=== PATIENT | female | born 1995 | race Caucasian/White ===

== ENCOUNTER → 2018-10-07 | Outpatient (CLI) | payer BC, OTHER, SELFPAY ==
[2018-10-07 17:50] LABS: Anion Gap 5 (5-15); BUN 10 mg/dL (7-18); BUN/Creat Ratio 11.4 RATIO (10-20); Chloride 107 mmol/L (98-107); Creatinine, Serum 0.87 mg/dL (0.55-1.02); EST Glomerular Filtration Rate 84 mL/min (>60); Est Glom Filt Rate - Afr Amer 102 mL/min (>60); Glucose 78 mg/dL (74-106); Potassium 3.7 mmol/L (3.5-5.1); Sodium Level 140 mmol/L (136-145)
[2018-10-07 18:12] LABS: Absolute Lymphocyte Count 3.49 X10^3/uL (0.83-4.51); Absolute Neutrophil Count 4.9 X10^3/uL (2.0-7.7); Basophil# 0.02 X10^3/uL; Basophil% 0.2 % (0-1); Eosinophil# 0.21 X10^3/uL; Eosinophils% 2.3 % (0-5); Hematocrit 40.3 % (37-47); Hemoglobin 13.5 g/dL (12.0-15.0); Lymphocyte # 3.49 X10^3/ul (4.0); Lymphocyte % 37.8 % (19-41); Mean Corp Hgb Conc 33.5 g/dL (32-36); Mean Corpuscular Hgb 31.2 pg (27.0-32.0); Mean Corpuscular Volume 93.1 fL (81-99); Mean Platelet Vol. 9.8 fl (6.2-12.0); Monocyte% 6.5 % (0-10); NRBC Flagged by Analyzer 0 % (0-5); Platelet Count 312 K/mm3 (150-450); RBC Distribution Width CV 11.9 % (11.6-14.6); RBC Distribution Width SD 40.7 fl (35.1-43.9); Red Blood Count 4.33 M/mm3 (4.2-5.4); White Blood Count 9.2 K/mm3 (4.4-11.0)
== END | disposition home or self-care (01) ==
PROVIDERS: Family Provider Family Medicine; PCP Family Medicine; Referring Provider Nurse Practitioner Adult Health; Visit Provider Nurse Practitioner Adult Health
DX: R53.83 Other fatigue (principal)
CPT/HCPCS: 80048; 85025

== ENCOUNTER 2018-10-08 18:08 | Emergency (ER) | payer OTHER, SELFPAY ==
[2018-10-08 18:10] VITALS: BP 155/102; PULSE 65; RESP 18; TEMP 36.8; O2SAT 99; BMI 30.7
--- NOTE | 2018-10-08 18:23 | CT_ITS ---
STUDY: CT BRAIN WITHOUT CONTRAST REASON FOR EXAM: Female, 23 years old. Vertigo history of migraines RADIATION DOSAGE (If Supplied By Facility): CTDIvol = ( 44.99 ) mGy, DLP = ( 745.49 ) mGycm TECHNIQUE: Transaxial CT imaging of the brain was performed without administration of intravenous contrast material. Individualized dose optimization techniques were used for this CT. COMPARISON: No relevant priors. FINDINGS: Normal soft tissue structures. Normal calvarium. Normal size ventricles and extra-axial spaces for the patient's age. Normal white matter tracts of the cerebral hemispheres. Normal basal ganglia and thalami. Normal brainstem. Normal cerebellum. There is no intracranial hemorrhage. There are no findings of an acute ischemic infarction. Normal visualized paranasal sinuses. CT/Brain/Head without Contrast IMPRESSION: Normal unenhanced CT scan of the brain. Electronically Signed: Mena Pedraza MD at 19:03 EDT Tel , Service support ,
--- NOTE | 2018-10-08 18:24 | ED.VIS.GEN ---
History of Present Illness Chief Complaint: Dizziness Informant: Patient Onset: Yesterday Context: Onset with activity Timing: Intermittent Current Severity: Moderate Maximum Severity: Severe Narrative: Patient presents to the emergency department with episodic dizziness that she describes as the sensation of motion and change in equilibrium. She states that started yesterday. She states she was at work and moves her head, and started to feel the sensation. She states if she lays flat and rests, it will improve. When she moves, the symptoms will come on. She denies headache. She does take migraine medication daily, but there is been no recent changes in her dose. She denies any neck pain and denies any recent manipulation of her neck. She had no vomiting. She denies ataxia or difficulty with rapid alternating movements. She did see her primary care yesterday and was prescribed meclizine, feels like is not improving her symptoms. Prior similar symptoms: No Recent Illness/Hospitalization: No Past Medical History - Allergies and Home Meds Allergies/Adverse Reactions: Allergies No Known Allergies Allergy (Verified 10/08/18 18:09) Primary Care Physician: Papo Farnsworth MD [Primary Care Provider] - Prior records reviewed: Yes Past Medical History: - - migraine Surgical History: no surgical history Smoking Status: Never smoker Review of Systems General: Denies: Chills, Fever, Sweats Eyes: Denies: Visual changes - bilaterally, Diplopia ENT: Denies: Rhinorrhea, Sore throat Cardiovascular: Denies: Chest pain, Palpitations Respiratory: Denies: Dyspnea, Cough, Dyspnea on exertion Gastrointestinal: Denies: Abdominal pain, Nausea, Vomiting, Diarrhea, Melena, Hematochezia Genitourinary: Denies: Dysuria, Hematuria, Frequency Musculoskeletal: Denies: Back pain, Extremity Pain Skin: Denies: Rash, Wounds Neurological: Denies: Headache, Weakness, Parasthesia, Numbness Psych: Denies: Depression Endocrine: Denies: Polyuria Physical Exam Vital Signs/Narrative: Vital Signs Temp Pulse Resp BP Pulse Ox 10/08/18 18:10 98.3 F 65 18 155/102 H 99 Inital Vital Signs reviewed: Yes General: Well nourished, Well developed, No Acute Distress Head: Normocephalic, Atraumatic Eyes: Perrl, EOMI ENT: Moist mucous membranes, No rhinorrhea Neck: Supple, Nontender Cardiovascular: Regular rate, Regular rhythm, No murmurs Respiratory: No distress, CTA bilaterally, Chest nontender Abdomen: Soft, Nontender, Nondistended, Normal bowel sounds Back: Nontender, Normal Inspection Extremities: Nontender, No edema Skin: Normal color, No rash Neurological: Alert, Oriented x3, Cranial nerves II-XII grossly intact, Normal Strength, Normal Sensation Psychological: Normal affect, Normal Mood Diagnostic/Tx/Re-eval - Medical Decision Making Jorge maneuver was done after evaluation. The patient did have some improvement of her symptoms. Given her history of migraine and persistence, I did obtain a head CT to rule out mass. This is unremarkable. The patient was treated with prednisone, Valium, and Zofran. She did have some improvement. At this point, I do suspect that this is a peripheral vertigo. She has extinguishable nystagmus. She has a normal neurologic examination, steady gait, and no neck pain. She had improvement with an Jorge maneuver. I am going to continue her on outpatient medications and counseled her on using the Jorge at home. I also counseled her that if her symptoms are not improving in 48 hours to return and she is comfortable with this plan of care. Patient will be discharged home. Impression 1. Benign positional vertigo ED Disposition - Plan for ED Patient: Instructions: Benign Positional Vertigo Prescriptions: Prednisone [Deltasone] 40 mg PO DAILY #10 tab Prescription Printed Diazepam [Valium] 5 mg PO Q8 PRN #10 tab PRN Reason: Dizziness Prescription Printed Ondansetron [Zofran Odt] 4 mg PO Q8H PRN PRN #10 tab PRN Reason: Nausea Prescription Printed Referrals: Papo Farnsworth MD [Primary Care Provider] -
[2018-10-08] MEDS: diazePAM 5 MG Tablet PO (18:29)
[2018-10-08] MEDS: Ondansetron ODT 4 MG Tablet PO (18:29)
[2018-10-08] MEDS: predniSONE 20 MG Tablet 60 MG PO (18:29)
[2018-10-08 19:16] VITALS: BP 138/87; PULSE 76; RESP 16; O2SAT 97
== END 2018-10-08 19:17 | disposition home or self-care (01) ==
LOC: ED 18:46
PROVIDERS: Emergency Provider Emergency Medicine; Family Provider Family Medicine; PCP Family Medicine
DX: H81.10 Benign paroxysmal vertigo, unspecified ear (principal); G43.909 Migraine, unspecified, not intractable, without status migrainosus; Z79.899 Other long term (current) drug therapy
CPT/HCPCS: 70450; 99283

== ENCOUNTER → 2019-02-10 12:36 | Outpatient (CLI) | payer OTHER, SELFPAY ==
[2019-02-10 14:50] LABS: ALB/GLOB Ratio 1.2 RATIO (0.9-2.4); AST(SGOT) 21 U/L (15-37); Alanine Aminotransfer ALT/SGPT 23 U/L (13-56); Albumin, Serum 4.3 g/dL (3.2-5.0); Alkaline Phosphatase 48 U/L (45-117); Anion Gap 4 (5-15); BUN 9 mg/dL (7-18); BUN/Creat Ratio 10.4 RATIO (10-20); Calcium,Total 9.1 mg/dL (8.5-10.1); Chloride 106 mmol/L (98-107); Creatinine, Serum 0.86 mg/dL (0.55-1.02); EST Glomerular Filtration Rate 85 mL/min (>60); Est Glom Filt Rate - Afr Amer 103 mL/min (>60); Globulin 3.7 g/dL (2.2-4.2); Glucose 83 mg/dL (74-106); Magnesium 2.2 mg/dL (1.6-2.6); Potassium 4.3 mmol/L (3.5-5.1); Sodium Level 138 mmol/L (136-145); Thyroid Stim Hormone (TSH) 1.54 uIU/mL (0.358-3.74)
== END ==
PROVIDERS: Family Provider Family Medicine; PCP Family Medicine; Referring Provider Family Medicine; Visit Provider Family Medicine
DX: I10 Essential (primary) hypertension (principal)
CPT/HCPCS: 36415; 80053; 83735; 84443

== ENCOUNTER 2021-04-06 07:24 | Emergency (ER) | payer OTHER, SELFPAY ==
[2021-04-06 07:25] VITALS: BP 191/114; PULSE 92; RESP 16; TEMP 35.3; O2SAT 97; BMI 31.7
--- NOTE | 2021-04-06 07:36 | CT_ITS ---
STUDY: CT BRAIN WITHOUT CONTRAST REASON FOR EXAM: Female, 25 years old. Headaches. RADIATION DOSAGE (If Supplied By Facility): CTDIvol = ( 44.99 ) mGy, DLP = ( 796.11 ) mGycm TECHNIQUE: Transaxial CT imaging of the brain was performed without administration of intravenous contrast material. Individualized dose optimization techniques were used for this CT. COMPARISON: Comparison is made with prior study dated 10/08/2018. FINDINGS: Normal soft tissue structures. Normal calvarium. Normal size ventricles and extra-axial spaces for the patient''s age. Normal white matter tracts of the cerebral hemispheres. Normal basal ganglia and thalami. Normal brainstem. Normal cerebellum. There is no intracranial hemorrhage. There are no findings of an acute ischemic infarction. Normal visualized paranasal sinuses. CT/Brain/Head without Contrast IMPRESSION: Normal unenhanced CT scan of the brain. Electronically Signed: Ashutosh Robin MD at 9:14 EST ,
--- NOTE | 2021-04-06 07:37 | EX.ED.DYSGE1 ---
HPI History of Present Illness Chief Complaint: Headache Informant: patient Narrative Narrative: 25-year-old female with a history of migraines states that she has had a headache for 5 days. She describes it as frontal and throbbing in nature. Shards of burning sensation in her nose and feels that her eyes are going to pop out of her skull. She takes rizatriptan which did not help her. She also takes magnesium and takes galcanezumab monthly. No fevers or rashes. No nasal drainage. No sore throat or cough. No nausea vomiting. No arm or leg symptoms. No photophobia. Patient is able to text on her phone without difficulty. PFSH PFS Medical History Hx of ovarian cyst Migraines Home Medications rizatriptan 1 tab PO DAILY PRN 01/04/17 [History Last Taken Unknown] galcanezumab-gnlm 100 mg SQ QMONTH 10/08/18 [History Last Taken Unknown] cyclobenzaprine [Flexeril] 10 mg PO TID PRN 04/06/21 [History Last Taken Unknown] magnesium 200 mg PO DAILY 04/06/21 [History Last Taken Unknown] multivitamin 1 tab PO DAILY 04/06/21 [History Last Taken Unknown] Allergy/AdvReac Type Severity Reaction Status Date / Time No Known Allergies Allergy Verified 04/06/21 07:28 Surgical History Hx of tonsillectomy Social History (Updated 04/06/21 @ 07:[address] Clark Silva DO) Smoking Status: Never smoker substance use type: does not use ROS ROS ED Constitutional Constitutional ED: Denies chills, fever(s) or weight loss Eyes Eyes: Denies change in vision or diplopia ENT ENT ED: Denies ear pain, rhinorrhea or sore throat Cardiovascular Cardiovascular: Denies chest pain, orthopnea, palpitations or racing heartbeat Respiratory/Chest Respiratory/Chest: Denies cough, dyspnea or orthopnea Gastrointestinal Gastrointestinal: Denies abdominal pain, diarrhea, nausea or vomiting Genitourinary Genitourinary ED: Denies dysuria, hematuria or urinary frequency Musculoskeletal Musculoskeletal: Denies arthralgias or myalgias Integumentary Denies abscess or rash Neurologic Neurologic: Reports headache(s) and paresthesias; Denies weakness Psychiatric Psychiatric: Denies anxiety, depression, suicidal ideation or suicidal thoughts Endocrine Endocrinology: Denies polydipsia, polyphagia or polyuria Allergic/Immunologic Allergic/Immunologic ED: Denies mouth swelling, tongue swelling or urticaria EXAM Physical Exam Const Vital Signs: 04/06/21 07:25 04/06/21 08:45 Temperature 95.6 F L Temperature Source Temporal Pulse Rate 92 77 Respiratory Rate 16 16 Blood Pressure 191/114 H 132/89 H Blood Pressure Mean 139 103 Pulse Ox 97 99 Oxygen Delivery Method Room Air Room Air Positive well nourished and well developed General Appearance ED: well developed HEENT Reports normocephalic, head/scalp atraumatic, TM's clear and moist mucous membranes HEENT Narrative: No photophobia. No lesions in the nose. Negative for trauma Tympanic Membrane ED: Yes TM's clear Eyes PERRL and EOMs intact bilaterally Neck no lymphadenopathy, supple and no JVD Resp normal respiratory effort and clear to auscultation bilaterally Cardio regular rate, regular rhythm and no murmurs GI normal to inspection, nondistended, normoactive bowel sounds and non-tender Palpation: soft Back/Spine no CVA tenderness and normal ROM Extremity normal to inspection General Extremety ED: Negative for edema General Extremity: Negative for edema Neuro oriented x3, CN's II-XII intact bilaterally and no sensory deficits noted Sensorium / Orientation: alert Motor Exam: strength 5/5 throughout Psych mental status grossly normal Mood & Affect: Negative for depressed or tearful Skin no rashes or lesions noted and no wounds MDM MDM MDM Narrative Medical decision making narrative: CT the brain was obtained and is negative. Patient received IV fluids Benadryl Toradol and Compazine. Repeat examination shows her to be feeling better. Give her dose of Solu-Medrol recommend every 6 hours Motrin for the next day and following up with primary care especially of her migraines are becoming more frequent but hopefully this is just an episode Radiography Diagnostic Testing: Clinical Impression(s) from Imaging Studies Brain CT 04/06/21 07:36 IMPRESSION: Normal unenhanced CT scan of the brain. Electronically Signed: Ashutosh Robin MD at 9:14 EST , Discharge Plan Triage Chief Complaint: Headache ED Provider: Clark Silva Dx/Rx/DC Orders Clinical Impression: Migraine headache Instructions: ED, Migraine (Classical) Prescriptions: No Action rizatriptan 5 MG tablet 1 tab PO DAILY PRN (Reason: Headache) RF: 0 galcanezumab-gnlm 100 MG/ML syringe 100 mg SQ QMONTH RF: 0 multivitamin Tablet 1 tab PO DAILY RF: 0 cyclobenzaprine [Flexeril] 10 mg Tablet 10 mg PO TID PRN (Reason: muscle spasms) RF: 0 magnesium 200 mg Tablet 200 mg PO DAILY RF: 0 Primary Care Provider: Papo Farnsworth Referrals: Papo Farnsworth MD [Primary Care Provider] - As Needed Disposition Disposition: Home, Self Care
[2021-04-06] MEDS: Ketorolac 30 MG/ML Syringe IV (08:16)
[2021-04-06] MEDS: DiphenhydrAMINE 50 MG/ML Syringe IV (08:16)
[2021-04-06] MEDS: proCHLORPERazine 10 MG/2 ML Vial IV (08:16)
[2021-04-06] MEDS: 0.9% Normal Saline 1,000 ML 999 ML IV (08:16)
[2021-04-06 08:45] VITALS: BP 132/89; PULSE 77; RESP 16; O2SAT 99
[2021-04-06 10:17] VITALS: PULSE 80; RESP 16; O2SAT 99
== END 2021-04-06 10:18 | disposition home or self-care (01) ==
LOC: ED 08:09
PROVIDERS: Emergency Provider Emergency Medicine; PCP Family Medicine; Visit Provider Emergency Medicine
DX: G43.909 Migraine, unspecified, not intractable, without status migrainosus (principal); Z79.899 Other long term (current) drug therapy
CPT/HCPCS: 70450; 96361; 96374; 96375; 99284; A4216

== ENCOUNTER 2021-04-07 12:44 | Outpatient (CLI) | payer OTHER, SELFPAY ==
[2021-04-07 15:28] LABS: Hemoglobin 13.7 g/dL (12.0-15.0); Mean Corp Hgb Conc 32.6 g/dL (32-36); Mean Corpuscular Hgb 30.6 pg (27.0-32.0); Platelet Count 401 K/mm3 (150-450); RBC Distribution Width CV 12.2 % (11.6-14.6); RBC Distribution Width SD 42.5 fl (35.1-43.9); Red Blood Count 4.47 M/mm3 (4.2-5.4); White Blood Count 17.5 K/mm3 (4.4-11.0)
[2021-04-07 16:44] LABS: AST(SGOT) 24 U/L (15-37); Alanine Aminotransfer ALT/SGPT 25 U/L (13-56); Albumin, Serum 4.2 g/dL (3.2-5.0); Alkaline Phosphatase 55 U/L (45-117); Anion Gap 4 (5-15); BUN 12 mg/dL (7-18); BUN/Creat Ratio 15.2 RATIO (10-20); Calcium,Total 9.2 mg/dL (8.5-10.1); Chloride 105 mmol/L (98-107); Creatinine, Serum 0.79 mg/dL (0.55-1.02); EST Glomerular Filtration Rate 93 mL/min (>60); Est Glom Filt Rate - Afr Amer 113 mL/min (>60); Globulin 4.2 g/dL (2.2-4.2); Glucose 57 mg/dL (74-106); Potassium 3.1 mmol/L (3.5-5.1); Protein, Total 8.4 g/dL (6.4-8.2); Sodium Level 138 mmol/L (136-145); Thyroid Stim Hormone (TSH) 1.41 uIU/mL (0.358-3.74)
== END 2021-04-07 23:59 | disposition home or self-care (01) ==
PROVIDERS: PCP Family Medicine; Referring Provider Family Medicine; Visit Provider Family Medicine
DX: I10 Essential (primary) hypertension (principal)
CPT/HCPCS: 36415; 80053; 84443; 85027

== ENCOUNTER 2021-04-18 15:53 | Outpatient (CLI) | payer OTHER, SELFPAY ==
[2021-04-18 18:07] LABS: Absolute Lymphocyte Count 4.94 X10^3/uL (0.83-4.51); Basophil# 0.05 X10^3/uL; Basophil% 0.4 % (0-1); Eosinophils% 0.8 % (0-5); Hematocrit 40.3 % (37-47); Lymphocyte # 4.94 X10^3/ul (0.83-4.51); Lymphocyte % 40.6 % (19-41); Mean Corp Hgb Conc 32.3 g/dL (32-36); Mean Corpuscular Hgb 30.4 pg (27.0-32.0); Mean Corpuscular Volume 94.2 fL (81-99); Mean Platelet Vol. 9.7 fl (6.2-12.0); Monocyte# 0.96 X10^3/uL; Monocyte% 7.9 % (0-10); NRBC Flagged by Analyzer 0 % (0-5); Neutrophil # 6.03 X10^3/uL (2.7-7.7); Neutrophil % 49.6 % (47-70); Platelet Count 418 K/mm3 (150-450); RBC Distribution Width CV 11.9 % (11.6-14.6); RBC Distribution Width SD 41.6 fl (35.1-43.9); Red Blood Count 4.28 M/mm3 (4.2-5.4); White Blood Count 12.2 K/mm3 (4.4-11.0)
[2021-04-18 18:52] LABS: Anion Gap 5 (5-15); BUN 10 mg/dL (7-18); Calcium,Total 9.6 mg/dL (8.5-10.1); Chloride 104 mmol/L (98-107); Creatinine, Serum 0.84 mg/dL (0.55-1.02); EST Glomerular Filtration Rate 87 mL/min (>60); Est Glom Filt Rate - Afr Amer 106 mL/min (>60); Glucose 84 mg/dL (74-106); Magnesium 2.6 mg/dL (1.6-2.6); Potassium 4.3 mmol/L (3.5-5.1); Sodium Level 137 mmol/L (136-145)
== END 2021-04-18 23:59 | disposition home or self-care (01) ==
LOC: MFPLAB 15:54
PROVIDERS: PCP Family Medicine; Visit Provider Family Medicine
DX: D72.829 Elevated white blood cell count, unspecified (principal); I10 Essential (primary) hypertension
CPT/HCPCS: 36415; 80048; 83735; 85025

== ENCOUNTER → 2021-11-22 | Outpatient (CLI) | payer OTHER, SELFPAY ==
[2021-11-22 18:43] LABS: Luteinizing Hormone 1.8 mIU/mL; Prolactin 15.7 ng/mL
[2021-11-22 18:46] LABS: hCG Titer Quant., Serum < 1 mIU/mL (1-3)
[2021-11-24 16:58] LABS: Cancer Antigen 125 18.5 U/mL (0.0-38.1); Carcinoembryonic Antigen 2139 0.3 ng/mL (0.0-4.7)
== END | disposition home or self-care (01) ==
LOC: WOBLAB 16:28
PROVIDERS: PCP Family Medicine; Visit Provider Student in an Organized Health Care Education/Training Program
DX: N93.9 Abnormal uterine and vaginal bleeding, unspecified (principal)
CPT/HCPCS: 36415; 82105; 82378; 83001; 83002; 84146; 84702; 86304

== ENCOUNTER → 2021-12-15 | Outpatient (CLI) | payer OTHER, SELFPAY ==
[2021-12-15 15:40] LABS: Hemoglobin 13.7 g/dL (12.0-15.0); Mean Corp Hgb Conc 33.4 g/dL (32-36); Mean Corpuscular Hgb 31.6 pg (27.0-32.0); Mean Corpuscular Volume 94.7 fL (81-99); Mean Platelet Vol. 9.6 fl (6.2-12.0); Platelet Count 392 K/mm3 (150-450); RBC Distribution Width CV 12.1 % (11.6-14.6); RBC Distribution Width SD 42.3 fl (35.1-43.9); Red Blood Count 4.33 M/mm3 (4.2-5.4); White Blood Count 12.4 K/mm3 (4.4-11.0)
[2021-12-15 15:54] LABS: ALB/GLOB Ratio 1.1 RATIO (0.9-2.4); AST(SGOT) 23 U/L (15-37); Alanine Aminotransfer ALT/SGPT 28 U/L (13-56); Albumin, Serum 4.2 g/dL (3.2-5.0); Alkaline Phosphatase 54 U/L (45-117); Anion Gap 3 (5-15); BUN 12 mg/dL (7-18); BUN/Creat Ratio 13.7 RATIO (10-20); Calcium,Total 9.5 mg/dL (8.5-10.1); Chloride 105 mmol/L (98-107); Creatinine, Serum 0.88 mg/dL (0.55-1.02); EST Glomerular Filtration Rate 82 mL/min (>60); Est Glom Filt Rate - Afr Amer 99 mL/min (>60); Globulin 3.9 g/dL (2.2-4.2); Glucose 90 mg/dL (74-106); Potassium 3.5 mmol/L (3.5-5.1); Protein, Total 8.1 g/dL (6.4-8.2); Sodium Level 138 mmol/L (136-145)
== END | disposition home or self-care (01) ==
LOC: MTLAB 13:23
PROVIDERS: PCP Family Medicine; Referring Provider Obstetrics & Gynecology; Visit Provider Obstetrics & Gynecology
DX: Z01.812 Encounter for preprocedural laboratory examination (principal); R97.8 Other abnormal tumor markers; N83.201 Unspecified ovarian cyst, right side
CPT/HCPCS: 36415; 80053; 85027

== ENCOUNTER → 2022-11-02 | Outpatient (CLI) | payer OTHER, SELFPAY ==
[2022-11-02 18:25] LABS: Anion Gap 4 (5-15); BUN 16 mg/dL (7-18); BUN/Creat Ratio 18.2 RATIO (10-20); Calcium,Total 9.3 mg/dL (8.5-10.1); Chloride 105 mmol/L (98-107); Cholesterol 183 mg/dL (200); Creatinine, Serum 0.88 mg/dL (0.55-1.02); EST Glomerular Filtration Rate 81 mL/min (>60); Est Glom Filt Rate - Afr Amer 98 mL/min (>60); Glucose 85 mg/dL (74-106); High Density Lipoprotein 93 mg/dL; Potassium 3.5 mmol/L (3.5-5.1); Sodium Level 136 mmol/L (136-145); Thyroid Stim Hormone (TSH) 2.13 uIU/mL (0.358-3.74); Triglycerides 104 mg/dL; Very Low Density Lipoprotein 21 mg/dL (5-40)
[2022-11-06 12:08] LABS: ANTINUCLEAR ANTIBODIES DIRECT Negative (Negative)
[2022-11-10 12:09] LABS: Aldosterone, Serum 2.6 ng/dL (0.0-30.0); Renin, Plasma 0.426 ng/mL/hr (0.167-5.380)
== END | disposition home or self-care (01) ==
LOC: MTLAB 16:02
PROVIDERS: PCP Family Medicine; Visit Provider Family Medicine
DX: R63.5 Abnormal weight gain (principal); I10 Essential (primary) hypertension
CPT/HCPCS: 36415; 80048; 80061; 82088; 82533; 84244; 84443; 86038

== ENCOUNTER 2023-04-12 12:59 | Emergency (ER) | payer OTHER, SELFPAY ==
[2023-04-12 13:00] VITALS: BP 130/78; PULSE 74; RESP 14; TEMP 36.2; O2SAT 98; BMI 29.9
--- NOTE | 2023-04-12 13:26 | CT_ITS ---
STUDY: CT ABDOMEN AND PELVIS WITHOUT CONTRAST REASON FOR EXAM: Female, 27 years old. One week history of abdominal pain. RADIATION DOSAGE (If Supplied By Facility): CTDIvol = ( 6.30 ) mGy, DLP = ( 297.38 ) mGycm TECHNIQUE: Transaxial images were obtained from the dome of the diaphragm to the symphysis pubis without oral contrast, and without intravenous contrast. Sagittal and coronal images were reconstructed. Individualized dose optimization techniques were used for this CT. COMPARISON: Comparison is made with prior study dated January 04, 2017. FINDINGS: The visualized lung bases are unremarkable. The visualized portions of the heart are within normal limits. Normal liver. Normal gallbladder and extrahepatic biliary system. Normal spleen. Normal pancreas. Normal bilateral adrenal glands. Normal right kidney. Normal left kidney. Normal visualized stomach. Normal small intestine. Normal colon. The appendix is visualized and appears normal. Normal abdominal aorta. Normal inferior vena cava. Normal retroperitoneum. Normal urinary bladder. Minimal amount of free fluid is seen in the cul-de-sac. Normal abdominal wall. Normal osseous structures. CT/Abdomen/Pelvis without Cont IMPRESSION: Minimal amount of free fluid is seen in the cul-de-sac. Electronically Signed: Ashutosh Robin MD at 15:13 EST ,
--- NOTE | 2023-04-12 13:30 | EDS_ITS ---
HPI HPI - GI History of Present Illness Chief Complaint: Abd Pain Detail of Chief Complaint: Abdominal pain Informant: patient Narrative Narrative: Patient presents with abdominal pain intermittently for about a week. She describes a colicky pain in the upper abdomen above her bellybutton initially. At times feels like it is in her chest. Patient denies fever chills or sweats. She has had no vomiting or diarrhea. Her last bowel movement was this morning. She does not think she is as she has not had intercourse in greater than 6 months. Patient states her periods are irregular but thinks she had 1 last month. Denies urinary symptoms. PFSH PFS Medical History (Updated 04/12/23 @ 15:[address] Gosia Franco DO) HTN (hypertension) Hx of ovarian cyst Migraines Home Medications galcanezumab-gnlm 300 mg/3 mL (100 mg/mL x 3) subcutaneous syringe 100 mg SQ QMONTH 10/08/18 [History Last Taken Unknown] multivitamin 1 tab PO DAILY 04/06/21 [History Last Taken Unknown] amlodipine 5 mg tablet 5 mg PO DAILY 11/16/22 [History Last Taken Unknown] lisinopril 10 mg tablet 10 mg PO DAILY 11/16/22 [History Last Taken Unknown] metoprolol tartrate 25 mg tablet 25 mg PO BID 11/16/22 [History Last Taken Unknown] lansoprazole 30 mg capsule,delayed release (Prevacid) 30 mg PO DAILY #14 caps 04/12/23 [Rx Last Taken Unknown] norethindrone (contraceptive) 0.35 mg tablet mg 04/12/23 [History Last Taken 03/14/23] Allergy/AdvReac Type Severity Reaction Status Date / Time No Known Allergies Allergy Verified 04/12/23 13:00 Surgical History (Updated 11/16/22 @ 11:12 by Tati Weiner) History of laparoscopy History of wisdom tooth extraction Hx of tonsillectomy Social History (Updated 04/06/21 @ 07:[address] Clark Silva DO) Smoking Status: Never smoker substance use type: does not use ROS ROS ED Review of Systems ROS Unobtainable: other Constitutional Constitutional ED: Reports lethargy; Denies chills, fever(s), sweats or weight loss Eyes Eyes: Denies blurry vision, change in vision or diplopia ENT ENT ED: Denies rhinorrhea or sore throat Cardiovascular Cardiovascular: Denies chest pain, orthopnea or racing heartbeat Respiratory/Chest Respiratory/Chest: Denies cough, dyspnea, dyspnea on exertion, orthopnea or sputum Gastrointestinal Gastrointestinal: Reports abdominal pain; Denies diarrhea, nausea or vomiting Genitourinary Genitourinary ED: Denies dysuria, hematuria or urinary frequency Musculoskeletal Musculoskeletal: Denies arthralgias, back pain, myalgias or neck pain Integumentary Denies abscess, Abrasions or rash Neurologic Neurologic: Denies headache(s) or weakness Psychiatric Psychiatric: Denies anxiety, depression or suicidal thoughts Endocrine Endocrinology: Denies polydipsia, polyphagia or polyuria Hematologic/Lymphatic Hematologic/Lymphatic: Denies easy bleeding, easy bruising or lymphadenopathy Allergic/Immunologic Allergic/Immunologic ED: Denies mouth swelling, tongue swelling or urticaria EXAM Physical Exam Const Vital Signs: 04/12/23 13:00 04/12/23 15:39 Temperature 97.2 F L 97 F L Temperature Source Temporal Pulse Rate 74 78 Respiratory Rate 14 14 Blood Pressure 130/78 H 119/87 H Blood Pressure Mean 95 97 Pulse Ox 98 99 Oxygen Delivery Method Room Air Positive well nourished and well developed General Appearance ED: well developed and NAD HEENT Reports TM's clear and moist mucous membranes normocephalic and atraumatic; Negative for trauma or tenderness Tympanic Membrane ED: Yes TM's clear Eyes PERRL and EOMs intact bilaterally General Eye ED: Negative for pale conjunctiva or scleral icterus Neck no lymphadenopathy, supple and no JVD General: Negative for tenderness Chest Wall inspection of chest normal and palpation of chest normal Chest: Negative for tenderness Resp normal respiratory effort and clear to auscultation bilaterally Effort and Inspection: Negative for respiratory distress or pain with movement Auscultation: Negative for rhonchi, wheezes or diminished lung sounds Cardio regular rate, regular rhythm, S1 normal heart sound, S2 normal heart sound and no murmurs Peripheral Pulses: pulses 2+ throughout GI normal to inspection, nondistended, normoactive bowel sounds, soft to palpation, non-distended and no masses GI Narrative: Diffuse tenderness palpation in the epigastric region as well as the right upper quadrant and right lower quadrant with guarding. There is no rebound, rigidity, or peroneal signs. No mass palpated. Back/Spine no CVA tenderness and no thoracic nor lumbar tenderness Extremity normal to inspection General Extremety ED: Negative for edema General Extremity: Negative for edema Neuro oriented x3, CN's II-XII intact bilaterally, no sensory deficits noted and gait normal Sensorium / Orientation: awake, alert, oriented to person, oriented to place and oriented to time Motor Exam: strength 5/5 throughout and strength abnormal Psych mental status grossly normal Skin no rashes or lesions noted and no wounds MDM MDM MDM Narrative Medical decision making narrative: Patient presents with abdominal pain off and on for a week. IV line established. CBC with differential showed a slightly elevated white count of 13.0 with hemoglobin 13 and platelet count of 347. Chemistries unremarkable. LFTs were normal. Urinalysis normal. Lipase normal. hCG was negative. Patient had a CT scan of the abdomen pelvis that was essentially normal no evidence of appendicitis and no acute findings. This point etiology of her pain unclear. Will treat with Prevacid for 2 weeks and refer to GI for follow-up. Advised to avoid spicy and greasy foods. She is advised to return if worsening pain, fever, vomiting, or condition worsening way. Lab Data Labs: Laboratory Results - last 24 hr 04/12/23 13:15 WBC 13.0 H RBC 4.41 Hgb 13.1 Hct 40.3 MCV 91.4 MCH 29.7 MCHC 32.5 RDW Std Deviation 39.3 RDW Coeff of Tara 11.7 Plt Count 347 MPV 9.7 Immature Gran % (Auto) 0.500 Neut % (Auto) 63.4 Lymph % (Auto) 30.3 [facility] % (Auto) 5.1 Eos % (Auto) 0.5 Baso % (Auto) 0.2 Absolute Neuts (auto) 8.3 H Absolute Lymphs (auto) 3.94 Nucleated RBC % 0 Sodium 137 Potassium 3.5 Chloride 107 Carbon Dioxide 25.0 Anion Gap 5 BUN 10 Creatinine 0.83 Estim Creat Clear Calc 87.78 Est GFR (MDRD) Af Amer 104 Est GFR (MDRD) Non-Af 86 BUN/Creatinine Ratio 12.0 Glucose 77 Calcium 9.5 Total Bilirubin 1.00 AST 21 ALT 26 Alkaline Phosphatase 47 Total Protein 8.5 H Albumin 4.4 Globulin 4.1 Albumin/Globulin Ratio 1.1 Lipase 41 Serum , Qual NEGATIVE Urine Color Yellow Urine Clarity Clear Urine pH 6.5 Ur Specific Merrill 1.010 Urine Protein Negative Urine Glucose (UA) Normal Urine Ketones Negative Urine Occult Blood Negative Urine Nitrite Negative Urine Bilirubin Negative Urine Urobilinogen Normal Ur Leukocyte Esterase Negative Urine RBC 0 SEEN Urine WBC 0 SEEN Ur Squamous Epith Cells 0-5 SEEN Urine Bacteria 1+ Urine Mucus 0 SEEN Radiography Diagnostic Testing: Clinical Impression(s) from Imaging Studies Abdomen/Pelvis CT 04/12/23 13:26 IMPRESSION: Minimal amount of free fluid is seen in the cul-de-sac. Electronically Signed: Ashutosh Robin MD at 15:13 EST , Discharge Plan Triage Chief Complaint: Abd Pain ED Provider: Gosia Franco Dx/Rx/DC Orders Clinical Impression: Abdominal pain Instructions: ED Abdominal Pain Unkn Cause Fem Prescriptions: New lansoprazole [Prevacid] 30 mg capsule,delayed release(DR/EC) 30 mg PO DAILY Qty: 14 0RF No Action metoprolol tartrate 25 mg tablet 25 mg PO BID lisinopril 10 mg tablet 10 mg PO DAILY amlodipine 5 mg tablet 5 mg PO DAILY galcanezumab-gnlm 100 MG/ML syringe 100 mg SQ QMONTH multivitamin Tablet 1 tab PO DAILY norethindrone (contraceptive) 0.35 mg tablet Primary Care Provider: Papo Farnsworth Referrals: Papo Farnsworth MD [Primary Care Provider] - Friend,DO Adrian [Med Staff - Active Staff] - 3-5 Days Disposition Disposition: Home, Self Care Discharge Date/Time: 04/12/23 15:42
[2023-04-12] MEDS: Mag Hydrox/Al Hydrox/Simeth 30 ML UDC PO (13:33)
[2023-04-12] MEDS: 0.9% Normal Saline (1000mL) 1,000 ML 125 ML IV (13:36)
[2023-04-12 13:45] LABS: Mucous, Urine 0 SEEN /hpf (<or=2+); Red Blood Cells-Urine 0 SEEN /hpf (0-5); White Blood Cells 0 SEEN /hpf (0-5)
[2023-04-12 13:47] LABS: Absolute Lymphocyte Count 3.94 X10^3/uL (0.83-4.51); Absolute Neutrophil Count 8.3 X10^3/uL (2.0-7.7); Basophil# 0.02 X10^3/uL; Basophil% 0.2 % (0-1); Eosinophil# 0.06 X10^3/uL; Eosinophils% 0.5 % (0-5); Hematocrit 40.3 % (37-47); Hemoglobin 13.1 g/dL (12.0-15.0); Lymphocyte # 3.94 X10^3/ul (0.83-4.51); Lymphocyte % 30.3 % (19-41); Mean Corp Hgb Conc 32.5 g/dL (32-36); Mean Corpuscular Hgb 29.7 pg (27.0-32.0); Mean Corpuscular Volume 91.4 fL (81-99); Mean Platelet Vol. 9.7 fl (6.2-12.0); Monocyte# 0.66 X10^3/uL; Monocyte% 5.1 % (0-10); NRBC Flagged by Analyzer 0 % (0-5); Neutrophil # 8.27 X10^3/uL (2.7-7.7); Neutrophil % 63.4 % (47-70); Platelet Count 347 K/mm3 (150-450); RBC Distribution Width CV 11.7 % (11.6-14.6); RBC Distribution Width SD 39.3 fl (35.1-43.9); Red Blood Count 4.41 M/mm3 (4.2-5.4)
[2023-04-12 13:53] LABS: Color, Urine Yellow (Yellow); Glucose, Dipstick Normal (Normal); Ketone-Dipstick Negative (Negative); Leukocyte Esterase-Dipstick Negative /ul (Negative); Nitrite-Dipstick Negative (Negative); Occult Blood-Urine Negative /ul (Negative); Protein-Dipstick Negative (Negative); Urine Bilirubin Dipstick Negative (Negative); Urine Clarity Clear (Clear); Urine Urobilinogen Normal (Normal); Urine pH 6.5 (5.0 - 8.0)
[2023-04-12 14:10] LABS: Internal QC Validated? YES +Cl - CLEAR BKGD; Pregnancy, Serum, hCG Quali. NEGATIVE Negative; Record Kit Lot#, Serum Preg. HCG0000718086
[2023-04-12 14:18] LABS: ALB/GLOB Ratio 1.1 RATIO (0.9-2.4); AST(SGOT) 21 U/L (15-37); Alanine Aminotransfer ALT/SGPT 26 U/L (13-56); Albumin, Serum 4.4 g/dL (3.2-5.0); Alkaline Phosphatase 47 U/L (45-117); Anion Gap 5 (5-15); BUN 10 mg/dL (7-18); Calcium,Total 9.5 mg/dL (8.5-10.1); Chloride 107 mmol/L (98-107); Creatinine, Serum 0.83 mg/dL (0.55-1.02); EST Glomerular Filtration Rate 86 mL/min (>60); Est Glom Filt Rate - Afr Amer 104 mL/min (>60); Estimated Creatinine Clearance 87.78 ml/min; Globulin 4.1 g/dL (2.2-4.2); Glucose 77 mg/dL (74-106); Lipase 41 U/L (13-75); Potassium 3.5 mmol/L (3.5-5.1); Protein, Total 8.5 g/dL (6.4-8.2); Sodium Level 137 mmol/L (136-145)
[2023-04-12 14:39] LABS: Bacteria 1+ /hpf (None Seen); Squamous Epithelial Cells - UA 0-5 SEEN /hpf (5-10)
[2023-04-12 15:39] VITALS: BP 119/87; PULSE 78; RESP 14; TEMP 36.1; O2SAT 99
== END 2023-04-12 15:42 | disposition home or self-care (01) ==
PROVIDERS: Emergency Provider Emergency Medicine; PCP Family Medicine; Visit Provider Emergency Medicine
DX: R10.11 Right upper quadrant pain (principal); R10.13 Epigastric pain; R10.12 Left upper quadrant pain; I10 Essential (primary) hypertension; Z79.899 Other long term (current) drug therapy
CPT/HCPCS: 74176; 80053; 81001; 83690; 84703; 85025; 96360; 96361; 99282; J7030

== ENCOUNTER → 2023-04-26 | Outpatient (CLI) | payer OTHER, SELFPAY ==
--- OUTSIDE RECORDS SUMMARY | 2023-04-26 19:47 | XMS RPT_ITS | CCD ---
Author Name Unknown Address [address] [place] [address] Organization [facility] Care Team Providers Care Photogrammetric Compilation Specialist Name Role Phone DUSTY DE LOS SANTOS, DR SABILLON Primary Care Physician JENNIFER PERALTA MD Attending Unavailable DUSTY WHEELER, DR. SABILLON Primary Care Aime MONTANO MD., DR. SABILLON Primary Care JENNIFER Pisano MD Attending Unavailable DUSTY WHEELER, DR. SABILLON Primary Care Aime PASTOR MD., JENNIFER Hagen MD Attending Unavailable Medications Current Medications Medication Drug Class(es) Dates Sig (Normalized) Sig (Original) amLODIPine 5 mg oral tablet (3 sources) Dihydropyridine Calcium Channel [place] Start: 12-15-2021 amLODIPine 5 mg oral tablet Dose : 5 mg = 1 tab(s), Oral, qAM, # 30 tab(s), 0 Refill(s) Start Date: 12/15/21 Status: Ordered docusate sodium 100 mg oral capsule (2 sources) Start: 12-26-2021 End: 01-15-2022 Colace 100 mg oral capsule Dose : 100 mg = 1 cap(s), Oral, BID, # 20 cap(s), 1 Refill(s), Pharmacy: [id number], 152.4, cm, 12/26/21 7:20:00 EST, Height Start Date: 12/26/21 Stop Date: 01/15/22 Status: Ordered fluticasone propionate 0.05 mg/actuat metered dose nasal spray (3 sources) Corticosteroid Start: 12-15-2021 take 1 dose nasal route once daily in the morning as needed Flonase 50 mcg/inh nasal spray Dose = 1 spray(s), Nostril, each, qAM, PRN Allergy symptoms, 0 Refill(s) Start Date: 12/15/21 Status: Ordered 1 ml galcanezumab-gnlm 120 mg/ml auto-injector (3 sources) Start: 12-15-2021 inject 1 dose by subcutaneous injection every month Emgality Prefilled Pen 120 mg/mL subcutaneous solution Dose : 120 mg =, Subcutaneous, qmonth, 0 Refill(s) Start Date: 12/15/21 Status: Ordered Completed/Discontinued Medications Medication Drug Class(es) Dates Sig (Normalized) Sig (Original) magnesium oxide 400 mg oral tablet (3 sources) Start: 12-15-2021 End: 12-28-2021 magnesium oxide 400 mg oral tablet Dose : 400 mg = 1 tab(s), Oral, Daily, # 14 tab(s), 0 Refill(s) Start Date: 12/15/21 Stop Date: 12/28/21 Status: Ordered Problems Problem Classification Problem Date Documented Da te Episodic/Chronic Essential hypertension (3 sources) Hypertensive disorder 12-12-2021 Chronic Headache; including migraine (3 sources) Migraine 12-12-2021 Chronic Other female genital disorders (1 source) Abnormal uterine bleeding 12-27-2021 Chronic Ovarian cyst (5 sources) Cyst of ovary; Translations: [Unspecified ovarian cyst, unspecified side] Onset: 12-26-2021 Episodic Unclassified (1 source) Blood group A Rh(D) positive 12-29-2021 Results Test Name Value Interpretation Reference Range Facil ity Vital Signs Date Time Vital Sign Value Performing Clinician Faci lity 12-26-2021 15:43-0500 Body temperature 96.98 [degF] JENNIFER PERALTA MD [facility] 12-26-2021 15:43-0500 Diastolic Blood Pressure Non-Invasive 76 1 JENNIFER PERALTA MD [facility] 12-26-2021 15:43-0500 Heart rate 87 /min JENNIFER PERALTA MD [facility] 12-26-2021 15:43-0500 Mean blood pressure 88 mm[Hg] JENNIFER PERALTA MD [facility] 12-26-2021 15:43-0500 Reason For Taking VItal Signs JENNIFER PERALTA MD [facility] 12-26-2021 15:43-0500 Respiratory rate 16 /min JENNIFER PERALTA MD [facility] 12-26-2021 15:43-0500 Systolic Blood Pressure Non-Invasive 113 1 JENNIFER PERALTA MD [facility] 12-26-2021 12:35-0500 Body temperature 97.34 [degF] JENNIFER PERALTA MD [facility] 12-26-2021 12:35-0500 Diastolic Blood Pressure Non-Invasive 65 1 JENNIFER PERALTA MD [facility] 12-26-2021 12:35-0500 Heart rate 83 /min JENNIFER PERALTA MD [facility] 12-26-2021 12:35-0500 Mean blood pressure 75 mm[Hg] JENNIFER PERALTA MD [facility] 12-26-2021 12:35-0500 Respiratory rate 16 /min JENNIFER PERALTA MD [facility] 12-26-2021 12:35-0500 Systolic Blood Pressure Non-Invasive 96 1 JENNIFER PERALTA MD [facility] 12-26-2021 12:22-0500 Body temperature 96.98 [degF] JENNIFER PERALTA MD [facility] 12-26-2021 12:22-0500 Diastolic Blood Pressure Non-Invasive 77 1 JENNIFER PERALTA MD [facility] 12-26-2021 12:22-0500 Heart rate 92 /min JENNIFER PERALTA MD [facility] 12-26-2021 12:22-0500 Mean blood pressure 85 mm[Hg] JENNIFER PERALTA MD [facility] 12-26-2021 12:22-0500 Respiratory rate 16 /min JENNIFER PERALTA MD [facility] 12-26-2021 12:22-0500 Systolic Blood Pressure Non-Invasive 113 1 JENNIFER PERALTA MD [facility] 12-26-2021 12:09-0500 Mean blood pressure 80 mm[Hg] JENNIFER PERALTA MD [facility] 12-26-2021 11:54-0500 Mean blood pressure 86 mm[Hg] JENNIFER PERALTA MD [facility] 12-26-2021 11:15-0500 Respiratory Rate - Anes 13 br/min JENNIFER PERALTA MD [facility] 12-26-2021 11:10-0500 Heart rate 74 /min JENNIFER PERALTA MD [facility] 12-26-2021 11:10-0500 Respiratory Rate - Anes 13 br/min JENNIFER PERALTA MD [facility] 12-26-2021 11:05-0500 Heart rate 67 /min JENNIFER PERALTA MD [facility] 12-26-2021 11:05-0500 Respiratory Rate - Anes 22 br/min JENNIFER PERALTA MD [facility] 12-26-2021 11:00-0500 Heart rate 77 /min JENNIFER PERALTA MD [facility] 12-26-2021 10:50-0500 Body temperature 97.05 [degF] JENNIFER PERALTA MD [facility] 12-26-2021 10:45-0500 Body temperature 97.03 [degF] JENNIFER PERALTA MD [facility] 12-26-2021 10:40-0500 Body temperature 96.85 [degF] JENNIFER PERALTA MD [facility] 12-26-2021 07:16-0500 Body height 152.4 cm JENNIFER PERALTA MD [facility] 12-26-2021 07:16-0500 Body weight 71.6 kg JENNIFER PERALTA MD [facility] Encounters Encounter Date Encounter Type Care Provider Facility Start: 01-11-2022 End: 01-12-2022 ambulatory JENNIFER PERALTA MD Facility:A Start: 01-11-2022 End: 01-11-2022 Patient encounter procedure JENNIFER PERALTA MD [facility] Start: 12-26-2021 End: 12-26-[address] RIDGE MONTANO MD. Facility:A Start: 12-26-2021 End: 12-26-2021 SAME DAY STAY JENNIFER PERALTA MD [facility] Start: 12-15-2021 End: 12-16-[address] RIDGE MONTANO MD. Facility:A Start: 12-15-2021 End: 12-15-2021 Patient encounter procedure JENNIFER PERALTA MD [facility] Procedures Date Procedure Procedure Detail Performing Clinician Start: 12-26-2021 Laparoscopic excisio n of cyst of right ovary JENNIFER PERALTA MD Start: 02-12-2015 Extraction of wisdom tooth JENNIFER PERALTA MD Start: 02-13-2008 Tonsillectomy JENNIFER LUU MD Extraction of wisdom tooth Jake PERALTA MD Tonsillectomy JENNIFER PERALTA MD Immunizations Immunization Date Immunization Notes Care Provider cili 05-26-2021 SARS-CoV-2 mRNA (hukxbpxuxup-bfmp-utlkkc e) vaccine JENNIFER PERALTA MD [facility] 07-29-2020 SARS-CoV-2 mRNA (tozinameran) vaccine JENNIFER PERALTA MD [facility] Payers Date Payer Category Payer Private Health Insurance [id number] 1995 Unknown [id number] 1994 Unknown [id number] 1994 Unknown [id number] Social History Date Type Detail Facility Start: 12-12-2021 Tobacco smoking status Never s moked tobacco (finding) [facility] Functional Status Date Assessment Result Facility 12-26-2021 Functional Status Awake, Up to bathroom [facility] 12-26-2021 Functional Status [facility] 12-26-2021 Functional Status [facility] 12-26-2021 Functional Status Maintained [facility] Mental Status Date Assessment Result Facility 12-26-2021 Mental Status Oriented x 4 [facility] Discharge instructions 12-26-2021 Note Date & Type Note Facility 12-26-2021 Hospital Discharg e instructions Patient Education 12/26/2021 12:58:03 Endometrial Biopsy, Care After Endometrial Biopsy, Care After This sheet gives you information about how to care for yourself after your procedure. Your health care provider may also give you more specific instructions. If you have problems or questions, contact your health care provider. What can I expect after the procedure? After the procedure, it is common to have: Mild cramping. A small amount of vaginal bleeding for a few days. This is normal. Follow these instructions at home: Take uwph-gde-plsyzjv and prescription medicines only as told by your health care provider. Do not douche, use tampons, or have sexual intercourse until your health care provider approves. Return to your normal activities as told by your health care provider. Ask your health care provider what activities are safe for you. Follow instructions from your health care provider about any activity restrictions, such as restrictions on strenuous exercise or heavy lifting. Contact a health care provider if: You have heavy bleeding, or bleed for longer than 2 days after the procedure. You have bad smelling discharge from your vagina. You have a fever or chills. You have a burning sensation when urinating or you have difficulty urinating. You have severe pain in your lower abdomen. Get help right away if: You have severe cramps in your stomach or back. You pass large blood clots. Your bleeding increases. You become weak or light-headed, or you pass out. Summary After the procedure, it is common to have mild cramping and a small amount of vaginal bleeding for a few days. Do not douche, use tampons, or have sexual intercourse until your health care provider approves. Return to your normal activities as told by your health care provider. Ask your health care provider what activities are safe for you. This information is not intended to replace advice given to you by your health care provider. Make sure you discuss any questions you have with your health care provider. Document Released: 11/19/2013 Document Revised: 01/11/2018 Document Reviewed: 02/14/2017 [employer] Patient Education 2020 [employer]. 12/26/2021 12:57:38 Ovarian Cystectomy, Care After Ovarian Cystectomy, Care After This sheet gives you information about how to care for yourself after your procedure. Your health care provider may also give you more specific instructions. If you have problems or questions, contact your health care provider. What can I expect after the procedure? After the procedure, it is common to have: Pain in your abdomen, especially at the incision areas. You will be given pain medicines to control the pain. Tiredness. This is a normal part of the recovery process. Your energy level will return to normal over the next several weeks. Problems passing stool (constipation). Follow these instructions at home: Medicines Take hway-byb-rijwkjo and prescription medicines only as told by your health care provider. If you were prescribed an antibiotic medicine, use it as told by your health care provider. Do not stop using the antibiotic even if you start to feel better. Do not take aspirin because it can cause bleeding. Do not drink alcohol while taking prescription pain medicine. Do not drive or use heavy machinery while taking prescription pain medicine. Incision care Follow instructions from your health care provider about how to take care of your incisions. Make sure you: ?Wash your hands with soap and water before you change your bandage (dressing). If soap and water are not available, use hand teacher drama. ?Change your dressing as told by your health care provider. ?Leave stitches (sutures), skin glue, or adhesive strips in place. These skin closures may need to stay in place for 2 weeks or longer. If adhesive strip edges start to loosen and curl up, you may trim the loose edges. Do not remove adhesive strips completely unless your health care provider tells you to do that. Check your incision areas every day for signs of infection. Check for: ?Redness, swelling, or pain. ?Fluid or blood. ?Warmth. ?Pus or a bad smell. Do not take baths, swim, or use a hot tub until your health care provider approves. Take showers instead of baths. Activity Return to your normal activities and diet as told by your health care provider. Ask your health care provider what activities are safe for you. Take rest breaks during the day as needed. Do not drive until your health care provider approves. General instructions Do not douche, use tampons, or have sexual intercourse until your health care provider says it is okay to do so. To prevent or treat constipation while you are taking prescription pain medicine, your health care provider may recommend that you: ?Take niva-rir-iuxubkp or prescription medicines. ?Eat foods that are high in fiber, such as fresh fruits and vegetables, whole grains, and beans. ?Drink enough fluid to keep your urine clear or pale yellow. ?Limit foods that are high in fat and processed sugars, such as fried and sweet foods. Keep all follow-up visits as told by your health care provider. This is important. Contact a health care provider if: You have a fever. You feel nauseous or you vomit. You have pain when you urinate or have blood in your urine. You have a rash on your body. You have pain or redness where the IV was inserted. You have pain that is not relieved with medicine. You have signs of infection, such as: ?Redness, swelling, or pain around your incisions. ?Fluid or blood coming from your incisions. ?An incision that feels warm to the touch. ?Pus or a bad smell coming from your incisions. Get help right away if: You have chest pain or shortness of breath. You feel dizzy or light-headed. You have increasing abdominal pain that is not relieved with medicines. You have pain, swelling, or redness in your leg. Your incision is opening (the edges are not staying together). Summary After the procedure, it is common to have some pain in your abdomen. You will be given pain medicines to control the pain. Follow instructions from your health care provider about how to take care of your incisions. Do not douche, use tampons, or have sexual intercourse until your health care provider says it is okay to do so. Keep all follow-up visits as told by your health care provider. This is important. This information is not intended to replace advice given to you by your health care provider. Make sure you discuss any questions you have with your health care provider. Document Released: 11/19/2013 Document Revised: 01/11/2018 Document Reviewed: 03/20/2017 [employer] Patient Education 2020 [employer]. Follow Up Care 12/15/2021 11:56:34 With:JENNIFER PERALTA MD Address: [address] [place] [address] [place] [address]- [phone] When: Unknown Comments:Follow-up with Dr. Peralta in the office on January 11, 2022 at 2:30 PM for your postoperative visit. [facility] Summary of episode note 12-26-2021 Note Date & Type Note Facility 12-26-2021 Summary of episod e note Discharge Instructions Thank you for allowing [facility] to assist you with your healthcare needs. The following is important discharge information regarding your hospital visit. Your Care Team RIDGE MONTANO MD Your Diagnosis Ovarian cyst Post-op pain What to do next Instructions From Your Doctor No heavy lifting > 10 pounds for 4 weeks No swimming or tub baths. Showers are okay. Pelvic Rest until seen for your post-op appointment. No driving for 2 weeks or if taking narcotic pain medications. Call the office if you have a fever > 100.4 F, nausea/vomiting, heavy vaginal bleeding, redness/bruising/drainage from incisions, or uncontrolled pain. Please make sure to take stool softeners as needed to prevent constipation. Follow the wound care instructions provided to you from my office. Scheduled Follow-Up Appointments Appointment Type When With Where Contact InformationSO OV Post Op 01/11/2022 02:30 PM EST JENNIFER PERALTA MD [facility] [address] [place] [phone] Follow Up Appointments Follow Up with JENNIFER PERALTA MD When Why: Follow-up as scheduled Where: [address] [place] [address] [place] [address]- [phone] Follow Up with JENNIFER PERALTA MD When Why: Follow-up with Dr. Peralta in the office on January 11, 2022 at 2:30 PM for your postoperative visit. Where: [address] [place] [address] [place] [address]- [phone] The Following Activity and Diet Have Been Ordered for You Discharge Activity - Ordered -- Other, 12/26/21 11:23:00 EST Discharge Diet - Ordered -- No changes were made to your diet during your hospital stay. Please resume your pre hospitalization diet on discharge., 12/26/21 11:23:00 EST Allergies [facility] Medications Please ask your primary doctor or pharmacist before taking any other medication not listed, including over the counter drugs, herbal medications, vitamins and or supplements as they may interact with your home medications. What How Much When Why Instructions Last Dose New docusate (Colace 100 mg oral capsule) 1 cap by mouth Two (2) times a day Duration: 10 Days Refills: 1 Pickup at [facility] New ibuprofen (ibuprofen 600 mg oral tablet) 1 tab(s) by mouth Every 6 hours Duration: 7 Days Refills: 1 Take with food or milk. Pickup at [facility] 074 New oxyCODONE (oxyCODONE 5 mg oral tablet ( IMMEDIATE release )) 1 tab(s) by mouth Every 6 hours Post-op pain Duration: 2 Days Pickup at [facility] 07 Unchanged amLODIPine (amLODIPine 5 mg oral tablet) 1 tab(s) by mouth Once a day (in the morning) Unchanged cholecalciferol (Vitamin D3) 50 Microgram by mouth Every day Unchanged fluticasone nasal (Flonase 50 mcg/ inh nasal spray) 1 spray(s) each nostril Once a day (in the morning) as needed for Allergy symptoms Unchanged galcanezumab (Emgality Prefilled Pen 120 mg/ mL subcutaneous solution) 120 Milligram Subcutaneous Once a month Unchanged magnesium oxide (magnesium oxide 400 mg oral tablet) 1 tab(s) by mouth Every day Duration: 14 Days Unchanged metoprolol (Lopressor 25mg--USE metoprolol tartrate 25 mg oral tablet) 1 tab(s) by mouth Two (2) times a day Unchanged multivitamin (Super B Complex oral tablet) 1 tab(s) by mouth Every day Unchanged mupirocin topical (mupirocin 2% topical ointment) 1 application Topical Two (2) times a day Bilateral intranasal application twice daily x 5 days pre-surgery &/ or as many days pre-surgery as possible Unchanged norethindrone (norethindrone 0.35 mg oral tablet) 1 tab(s) by mouth Once a day Unchanged quinapril (quinapril 10 mg oral tablet) 1 tab(s) by mouth Once a day (in the morning) Pharmacy Information [facility] 074: [address] [place], [place] [phone] Please take this list to your next doctor s visit. Bring all medications you take, including over the counter medications, herbals and other supplements with you to your doctor s visit. Patients and families are reminded to discard old lists and to update any records with all medication providers or retail pharmacies. Education Materials Endometrial Biopsy, Care After This sheet gives you information about how to care for yourself after your procedure. Your health care provider may also give you more specific instructions. If you have problems or questions, contact your health care provider. What can I expect after the procedure? After the procedure, it is common to have: Mild cramping. A small amount of vaginal bleeding for a few days. This is normal. Follow these instructions at home: Take bmtp-fcu-ofrplzj and prescription medicines only as told by your health care provider. Do not douche, use tampons, or have sexual intercourse until your health care provider approves. Return to your normal activities as told by your health care provider. Ask your health care provider what activities are safe for you. Follow instructions from your health care provider about any activity restrictions, such as restrictions on strenuous exercise or heavy lifting. Contact a health care provider if: You have heavy bleeding, or bleed for longer than 2 days after the procedure. You have bad smelling discharge from your vagina. You have a fever or chills. You have a burning sensation when urinating or you have difficulty urinating. You have severe pain in your lower abdomen. Get help right away if: You have severe cramps in your stomach or back. You pass large blood clots. Your bleeding increases. You become weak or light-headed, or you pass out. Summary After the procedure, it is common to have mild cramping and a small amount of vaginal bleeding for a few days. Do not douche, use tampons, or have sexual intercourse until your health care provider approves. Return to your normal activities as told by your health care provider. Ask your health care provider what activities are safe for you. This information is not intended to replace advice given to you by your health care provider. Make sure you discuss any questions you have with your health care provider. Document Released: 11/19/2013 Document Revised: 01/11/2018 Document Reviewed: 02/14/2017 [employer] Patient Education 2020 [employer] Ovarian Cystectomy, Care After This sheet gives you information about how to care for yourself after your procedure. Your health care provider may also give you more specific instructions. If you have problems or questions, contact your health care provider. What can I expect after the procedure? After the procedure, it is common to have: Pain in your abdomen, especially at the incision areas. You will be given pain medicines to control the pain. Tiredness. This is a normal part of the recovery process. Your energy level will return to normal over the next several weeks. Problems passing stool (constipation). Follow these instructions at home: Medicines Take exrn-zwu-nuqqebs and prescription medicines only as told by your health care provider. If you were prescribed an antibiotic medicine, use it as told by your health care provider. Do not stop using the antibiotic even if you start to feel better. Do not take aspirin because it can cause bleeding. Do not drink alcohol while taking prescription pain medicine. Do not drive or use heavy machinery while taking prescription pain medicine. Incision care Follow instructions from your health care provider about how to take care of your incisions. Make sure you: ? Wash your hands with soap and water before you change your bandage (dressing). If soap and water are not available, use hand teacher drama. ? Change your dressing as told by your health care provider. ? Leave stitches (sutures), skin glue, or adhesive strips in place. These skin closures may need to stay in place for 2 weeks or longer. If adhesive strip edges start to loosen and curl up, you may trim the loose edges. Do not remove adhesive strips completely unless your health care provider tells you to do that. Check your incision areas every day for signs of infection. Check for: ? Redness, swelling, or pain. ? Fluid or blood. ? Warmth. ? Pus or a bad smell. Do not take baths, swim, or use a hot tub until your health care provider approves. Take showers instead of baths. Activity Return to your normal activities and diet as told by your health care provider. Ask your health care provider what activities are safe for you. Take rest breaks during the day as needed. Do not drive until your health care provider approves. General instructions Do not douche, use tampons, or have sexual intercourse until your health care provider says it is okay to do so. To prevent or treat constipation while you are taking prescription pain medicine, your health care provider may recommend that you: ? Take [id number] or prescription medicines. ? Eat foods that are high in fiber, such as fresh fruits and vegetables, whole grains, and beans. ? Drink enough fluid to keep your urine clear or pale yellow. ? Limit foods that are high in fat and processed sugars, such as fried and sweet foods. Keep all follow-up visits as told by your health care provider. This is important. Contact a health care provider if: You have a fever. You feel nauseous or you vomit. You have pain when you urinate or have blood in your urine. You have a rash on your body. You have pain or redness where the IV was inserted. You have pain that is not relieved with medicine. You have signs of infection, such as: ? Redness, swelling, or pain around your incisions. ? Fluid or blood coming from your incisions. ? An incision that feels warm to the touch. ? Pus or a bad smell coming from your incisions. Get help right away if: You have chest pain or shortness of breath. You feel dizzy or light-headed. You have increasing abdominal pain that is not relieved with medicines. You have pain, swelling, or redness in your leg. Your incision is opening (the edges are not staying together). Summary After the procedure, it is common to have some pain in your abdomen. You will be given pain medicines to control the pain. Follow instructions from your health care provider about how to take care of your incisions. Do not douche, use tampons, or have sexual intercourse until your health care provider says it is okay to do so. Keep all follow-up visits as told by your health care provider. This is important. This information is not intended to replace advice given to you by your health care provider. Make sure you discuss any questions you have with your health care provider. Document Released: 11/19/2013 Document Revised: 01/11/2018 Document Reviewed: 03/20/2017 [employer] Patient Education 2020 [employer]. Additional Information VACCINATE! IT SAVES LIVES! Members of the community who have not yet received the COVID-19 vaccine and would like to receive it can visit one of [facility] vaccine clinics. There are many vaccine clinic locations within the [facility]. For locations and available times, please visit [email or web address] It is important to note that some COVID mobile vaccine clinics are held outdoors and may be canceled in rainy or stormy conditions. To learn more about pediatric vaccinations (ages 5-11), we invite you to visit the [facility] webpage. [email or web address] To learn more about the COVID-19 vaccine, we invite you to visit the [employer] website for a list of frequently asked questions. [email or web address] [facility] Patient Portal Access Instructions: Stay connected with your healthcare team and access your personal medical information anytime with the [facility] Patient Portal.If you would like a full copy of your medical records, please contact the [facility] Medical Records Department, Sunday through Sunday between 8a.m. and 4:30p.m. Please follow the directions below to access the portal: 1.Access the email account you provided upon registration to the [facility].2.Look for an invitation email from [facility].3.Open the email and access the invitation link: Accept Invitation to [email or web address].Fill in the required turk to create your account. Sign into [email or web address] with your username and password that you created in the above steps to stay up to date. You can then view a summary of results, a summary of your visits, and the ability to download your summaries to your computer or send the information securely to a physician. Remember that your healthcare information is confidential, so carefully consider who you will allow to register on the [facility] Patient Portal for access to your information. You can also access the [email or web address] Patient Portal on the [employer] sonya. Simply click on Health Records under Health Data and then click on the [employer] logo. HOW TO SAFELY DISPOSE OF PRESCRIPTION MEDICATIONS Please use one of the following methods to safely dispose of your unused medications. 1.Use a drug disposal kit: the drug disposal pouch allows you to safely discard your old and unused drugs. Ask your nurse to give you one when you are discharged.2.Visit a local take-back location: Many local pharmacies and police departments have programs that collect old and unwanted prescription drugs. Call your local pharmacy or go to http://[email or web address].[email or web address] Networks/9R9Mq4i to find one close to you.3.Make use of household items: Use cat litter or old coffee grounds to dispose medications if other options are not available. Mix your drugs with these household products, seal them in an airtight container and throw it into the garbage. Call [facility]: [phone] to be sure your drugs can be disposed of in this way. Some medicines may require a different approach.4.Never flush your medications down the toilet. IF YOU HAVE BEEN PRESCRIBED AN OPIOID FOR PAIN If you have been prescribed an opioid (such as hydrocodone, oxycodone or morphine), it is critical to understand the possible side effects and risks of opioid pain medications. Even when taken as directed, opioids can have several side effects including: Tolerance, meaning you might need to take more of a medication for the same pain relief. Nausea, vomiting and/or constipation. Sleepiness, dizziness, dry mouth, confusion, depression or itching. Physical dependence, meaning you have withdrawal symptoms when a medication is stopped, can develop within a few days. KNOW YOUR RESPONSIBILITIES It is important to know exactly how much and how often to take the opioid pain medications you are prescribed. Never take opioids in higher amounts or more often than prescribed. Do not combine opioids with alcohol or other drugs that cause drowsiness, such as benzodiazepines, also known as benzos, including diazepam and alprazolam, muscle relaxants or sleep aids. Never sell or share prescription opioids. This is illegal. Store opioids in a secure place and out of reach of others (including children, family, friends and visitors). The last page of this document has been signed and retained as a CHART COPY. Signatures Patient Education Materials Endometrial Biopsy, Care After Ovarian Cystectomy, Care After Medication Leaflets My discharge plan and instructions have been reviewed and explained to me and I,CHAY MCDONALD understand my current condition and have read and understand these discharge instructions. I have received a written copy of the plan/instructions. If I have questions, I am aware that I should contact my doctor. Patient/Marketing And Outreach Coordinator Signature: _ Date/Time: Relationship to Patient: Witness Name/Signature: Date/Time: [facility] Anesthesiology Consult note 12-26-2021 Note Date & Type Note Facility 12-26-2021 Anesthesiology Co nsult note Patient: CHAY MCDONALD Age: 26 years Sex: Female : 1995 Associated Diagnoses: None Author: RACHNA HUITRON MD Postoperative Information Patient has been doing well in the PACU. They have been hemodynamically stable, oxygenating well, the pain and nausea are under control. Her hydration status appears to be adequate and at baseline. Given the patient's stability, I feel they are appropriately recovered from anesthesia and in a stable condition to be discharged from PACU. Assessment Postanesthesia assessment Vitals: Vital signs from flowsheet : Vital Signs 12/26/2021 12:22 EST Temperature Temporal Artery 36.1 DegC Peripheral Pulse Rate 92 bpm Respiratory Rate 16 br/min Systolic Blood Pressure Non-Invasive 113 mmHg Diastolic Blood Pressure Non-Invasive 77 mmHg Mean Arterial Pressure (NBP) 85 mmHg 12/26/2021 12:09 EST Peripheral Pulse Rate 88 bpm Respiratory Rate 16 br/min Systolic Blood Pressure Non-Invasive 125 mmHg Diastolic Blood Pressure Non-Invasive 67 mmHg Mean Arterial Pressure (NBP) 80 mmHg 12/26/2021 11:54 EST Peripheral Pulse Rate 87 bpm Respiratory Rate 16 br/min Systolic Blood Pressure Non-Invasive 119 mmHg Diastolic Blood Pressure Non-Invasive 75 mmHg Mean Arterial Pressure (NBP) 86 mmHg 12/26/2021 11:39 EST Peripheral Pulse Rate 87 bpm Respiratory Rate 16 br/min Systolic Blood Pressure Non-Invasive 128 mmHg Diastolic Blood Pressure Non-Invasive 73 mmHg Mean Arterial Pressure (NBP) 87 mmHg 12/26/2021 11:23 EST Temperature Temporal Artery 36.3 DegC Peripheral Pulse Rate 93 bpm Respiratory Rate 16 br/min Systolic Blood Pressure Non-Invasive 131 mmHg Diastolic Blood Pressure Non-Invasive 81 mmHg Mean Arterial Pressure (NBP) 93 mmHg 12/26/2021 11:15 EST Respiratory Rate - Anes 13 br/min br/min 12/26/2021 11:13 EST Systolic Blood Pressure Non-Invasive 121 mmHg mmHg Diastolic Blood Pressure Non-Invasive 76 mmHg mmHg 12/26/2021 11:10 EST Heart Rate Monitored 74 bpm bpm Respiratory Rate - Anes 13 br/min br/min Systolic Blood Pressure Non-Invasive 120 mmHg mmHg Diastolic Blood Pressure Non-Invasive 76 mmHg mmHg 12/26/2021 11:07 EST Systolic Blood Pressure Non-Invasive 117 mmHg mmHg Diastolic Blood Pressure Non-Invasive 69 mmHg mmHg 12/26/2021 11:05 EST Heart Rate Monitored 67 bpm bpm Respiratory Rate - Anes 22 br/min br/min 12/26/2021 11:04 EST Systolic Blood Pressure Non-Invasive 116 mmHg mmHg Diastolic Blood Pressure Non-Invasive 66 mmHg mmHg 12/26/2021 11:01 EST Systolic Blood Pressure Non-Invasive 109 mmHg mmHg Diastolic Blood Pressure Non-Invasive 76 mmHg mmHg 12/26/2021 11:00 EST Heart Rate Monitored 77 bpm bpm Respiratory Rate - Anes 20 br/min br/min 12/26/2021 10:58 EST Systolic Blood Pressure Non-Invasive 119 mmHg mmHg Diastolic Blood Pressure Non-Invasive 73 mmHg mmHg 12/26/2021 10:55 EST Heart Rate Monitored 76 bpm bpm Respiratory Rate - Anes 13 br/min br/min Systolic Blood Pressure Non-Invasive 116 mmHg mmHg Diastolic Blood Pressure Non-Invasive 85 mmHg mmHg 12/26/2021 10:52 EST Systolic Blood Pressure Non-Invasive 117 mmHg mmHg Diastolic Blood Pressure Non-Invasive 78 mmHg mmHg 12/26/2021 10:50 EST Temperature (Route Not Specified) 36.14 DegC DegC Heart Rate Monitored 84 bpm bpm Respiratory Rate - Anes 14 br/min br/min 12/26/2021 10:49 EST Systolic Blood Pressure Non-Invasive 113 mmHg mmHg Diastolic Blood Pressure Non-Invasive 77 mmHg mmHg 12/26/2021 10:46 EST Systolic Blood Pressure Non-Invasive 114 mmHg mmHg Diastolic Blood Pressure Non-Invasive 82 mmHg mmHg 12/26/2021 10:45 EST Temperature (Route Not Specified) 36.13 DegC DegC Heart Rate Monitored 83 bpm bpm Respiratory Rate - Anes 14 br/min br/min 12/26/2021 10:43 EST Systolic Blood Pressure Non-Invasive 113 mmHg mmHg Diastolic Blood Pressure Non-Invasive 79 mmHg mmHg 12/26/2021 10:40 EST Temperature (Route Not Specified) 36.03 DegC DegC Heart Rate Monitored 86 bpm bpm Respiratory Rate - Anes 14 br/min br/min Systolic Blood Pressure Non-Invasive 119 mmHg mmHg Diastolic Blood Pressure Non-Invasive 81 mmHg mmHg 12/26/2021 10:37 EST Systolic Blood Pressure Non-Invasive 130 mmHg mmHg Diastolic Blood Pressure Non-Invasive 86 mmHg mmHg 12/26/2021 10:35 EST Temperature (Route Not Specified) 35.89 DegC DegC Heart Rate Monitored 78 bpm bpm Respiratory Rate - Anes 14 br/min br/min 12/26/2021 10:34 EST Systolic Blood Pressure Non-Invasive 120 mmHg mmHg Diastolic Blood Pressure Non-Invasive 87 mmHg mmHg 12/26/2021 10:31 EST Systolic Blood Pressure Non-Invasive 111 mmHg mmHg Diastolic Blood Pressure Non-Invasive 80 mmHg mmHg 12/26/2021 10:30 EST Temperature (Route Not Specified) 35.76 DegC DegC Heart Rate Monitored 87 bpm bpm Respiratory Rate - Anes 14 br/min br/min 12/26/2021 10:28 EST Systolic Blood Pressure Non-Invasive 115 mmHg mmHg Diastolic Blood Pressure Non-Invasive 74 mmHg mmHg 12/26/2021 10:25 EST Temperature (Route Not Specified) 35.74 DegC DegC Heart Rate Monitored 86 bpm bpm Respiratory Rate - Anes 14 br/min br/min Systolic Blood Pressure Non-Invasive 110 mmHg mmHg Diastolic Blood Pressure Non-Invasive 73 mmHg mmHg 12/26/2021 10:22 EST Systolic Blood Pressure Non-Invasive 120 mmHg mmHg Diastolic Blood Pressure Non-Invasive 87 mmHg mmHg 12/26/2021 10:20 EST Temperature (Route Not Specified) 35.68 DegC DegC Heart Rate Monitored 84 bpm bpm Respiratory Rate - Anes 14 br/min br/min 12/26/2021 10:19 EST Systolic Blood Pressure Non-Invasive 105 mmHg mmHg Diastolic Blood Pressure Non-Invasive 71 mmHg mmHg 12/26/2021 10:16 EST Systolic Blood Pressure Non-Invasive 104 mmHg mmHg Diastolic Blood Pressure Non-Invasive 64 mmHg mmHg 12/26/2021 10:15 EST Temperature (Route Not Specified) 35.72 DegC DegC Heart Rate Monitored 93 bpm bpm Respiratory Rate - Anes 14 br/min br/min 12/26/2021 10:13 EST Systolic Blood Pressure Non-Invasive 94 mmHg mmHg Diastolic Blood Pressure Non-Invasive 54 mmHg mmHg 12/26/2021 10:10 EST Temperature (Route Not Specified) 35.89 DegC DegC Heart Rate Monitored 97 bpm bpm Respiratory Rate - Anes 14 br/min br/min Systolic Blood Pressure Non-Invasive 95 mmHg mmHg Diastolic Blood Pressure Non-Invasive 56 mmHg mmHg 12/26/2021 10:07 EST Systolic Blood Pressure Non-Invasive 102 mmHg mmHg Diastolic Blood Pressure Non-Invasive 61 mmHg mmHg 12/26/2021 10:05 EST Heart Rate Monitored 102 bpm bpm Respiratory Rate - Anes 12 br/min br/min Systolic Blood Pressure Non-Invasive 101 mmHg mmHg Diastolic Blood Pressure Non-Invasive 59 mmHg mmHg 12/26/2021 10:03 EST Systolic Blood Pressure Non-Invasive 108 mmHg mmHg Diastolic Blood Pressure Non-Invasive 63 mmHg mmHg 12/26/2021 10:00 EST Heart Rate Monitored 98 bpm bpm Respiratory Rate - Anes 12 br/min br/min 12/26/2021 9:55 EST Heart Rate Monitored 109 bpm bpm Respiratory Rate - Anes 0 br/min br/min Systolic Blood Pressure Non-Invasive 105 mmHg mmHg Diastolic Blood Pressure Non-Invasive 63 mmHg mmHg 12/26/2021 9:52 EST Systolic Blood Pressure Non-Invasive 127 mmHg mmHg Diastolic Blood Pressure Non-Invasive 71 mmHg mmHg 12/26/2021 7:16 EST Temperature Temporal Artery 36 DegC Peripheral Pulse Rate 72 bpm Respiratory Rate 16 br/min Systolic Blood Pressure Non-Invasive 114 mmHg Diastolic Blood Pressure Non-Invasive 77 mmHg . Digitally Signed by RACHNA HUITRON MD on 12/26/2021 12:28 PM [facility] Anesthesiology Consult note 12-26-2021 Note Date & Type Note Facility 12-26-2021 Anesthesiology Co nsult note Patient: CHAY MCDONALD Age: 26 years Sex: Female : 1995 Associated Diagnoses: None Author: NILO PASTOR MD Preoperative Information Time of last food or liquid consumption: 12/25/2021 23:00:00 Anesthesia history Patient's history: negative. History of Present Illness The patient presents for preanesthesia evaluation with ovarian mass. Review of Systems Ear/Nose/Mouth/Throat: Negative. Respiratory: Negative. Cardiovascular: HTN, denies chest pain. Gastrointestinal: Negative. Genitourinary: oviarian mass. Endocrine: Negative. Musculoskeletal: Negative. Integumentary: Negative. Neurologic: Negative. Health Status Allergies: Allergic Reactions (Selected) NKA, Allergies (1) ActiveReaction NKANone Documented Current medications: (Selected) Inpatient Medications Ordered Dilaudid: 0.5 mg, 0.5 mL, IV Push, q2h, PRN: Pain, scale 4-6 Dilaudid: 1 mg, IV Push, q2h, PRN: Pain, scale 7-10 LR 1,000 mL: 20 mL/hr, Intravenous, Stop: 12/26/21 22:59:00 EST Toradol: 15 mg, 1 mL, IV Push, q6h, PRN: Pain, scale 1-8 Tylenol: 650 mg, 2 tab(s), Oral, q4h, PRN: Pain, scale 1-3 Zofran ODT: 4 mg, 1 tab(s), Oral, q6h, PRN: Nausea/Vomiting Zofran: 4 mg, 2 mL, IV Push, q4h, PRN: Nausea/Vomiting lidocaine 1% preservative-free injectable solution: 2.5 mg, 0.25 mL, Intradermal, prep pharm oxyCODONE 5 mg oral tablet ( IMMEDIATE release ): 10 mg, 2 tab(s), Oral, q4h, PRN: Pain, scale 7-10 oxyCODONE 5 mg oral tablet ( IMMEDIATE release ): 5 mg, 1 tab(s), Oral, q4h, PRN: Pain, scale 4-6 Prescriptions Prescribed Colace 100 mg oral capsule: 100 mg, 1 cap(s), Oral, BID, for 10 day(s), 20 cap(s), 1 Refill(s) ibuprofen 600 mg oral tablet: 600 mg, 1 tab(s), Oral, q6h, for 7 day(s), Take with food or milk., 28 tab(s), 1 Refill(s) mupirocin 2% topical ointment: 1 sonya, Topical, BID, Bilateral intranasal application twice daily x 5 days pre-surgery &/or as many days pre-surgery as possible, 22 gram(s), 0 Refill(s) oxyCODONE 5 mg oral tablet ( IMMEDIATE release ): 5 mg, 1 tab(s), Oral, q6h, for 2 day(s), 8 tab(s), 0 Refill(s) Documented Medications Documented Emgality Prefilled Pen 120 mg/mL subcutaneous solution: 120 mg, Subcutaneous, qmonth, 0 Refill(s) Flonase 50 mcg/inh nasal spray: 1 spray(s), Nostril, each, qAM, PRN: Allergy symptoms, 0 Refill(s) Lopressor 25mg--USE metoprolol tartrate 25 mg oral tablet: 25 mg, 1 tab(s), Oral, BID, 0 Refill(s) Super B Complex oral tablet: 1 tab(s), Oral, Daily, 30 tab(s), 0 Refill(s) Vitamin D3: 50 mcg, 1 cap(s), Oral, Daily, 30 cap(s), 0 Refill(s) amLODIPine 5 mg oral tablet: 5 mg, 1 tab(s), Oral, qAM, 30 tab(s), 0 Refill(s) magnesium oxide 400 mg oral tablet: 400 mg, 1 tab(s), Oral, Daily, for 14 day(s), 14 tab(s), 0 Refill(s) norethindrone 0.35 mg oral tablet: 0.35 mg, 1 tab(s), Oral, qDay, 28 tab(s), 3 Refill(s) quinapril 10 mg oral tablet: 10 mg, 1 tab(s), Oral, qAM, 30 tab(s), 0 Refill(s), Medications (10) Active Scheduled: (1) lidocaine 1% (MPF) 2 mL vial pf 2.5 mg 0.25 mL, Intradermal, prep pharm Continuous: (1) Lactated Ringers 1,000 mL 1,000 mL, Intravenous, 20 mL/hr PRN: (8) acetaminophen 325 mg Tablet 650 mg 2 tab(s), Oral, q4h HYDROmorphone 1 mg, IV Push, q2h HYDROmorphone 0.5 mg/0.5 mL PF syringe 0.5 mg 0.5 mL, IV Push, q2h ketorolac 15 mg/mL vial 15 mg 1 mL, IV Push, q6h ondansetron 2 mg/ 1 mL 2 mL INJ 4 mg 2 mL, IV Push, q4h ondansetron 4 mg DIS tablet 4 mg 1 tab(s), Oral, q6h oxycodone 5 mg tablet (immediate release) 5 mg 1 tab(s), Oral, q4h oxycodone 5 mg tablet (immediate release) 10 mg 2 tab(s), Oral, q4h Problem list: Medical Ovarian cyst / SNOMED CT 996065449 / Confirmed Hypertension / SNOMED CT 47587502 / Confirmed Migraine / SNOMED CT 19029182 / Confirmed, Active Problems (5) Elevated AFP Hypertension Migraine Ovarian cyst Ovarian mass Histories Past Medical History: No active or resolved past medical history items have been selected or recorded. Family History: Breast cancer Maternal Aunt Uterine cancer Grandparent Paternal Grandmother Ovarian cancer Grandparent Paternal Grandmother Procedure history: EXAMINATION UNDER ANESTHESIA, PIPELLE ENDOMETRIAL BIOPSY, OPERATIVE LAPAROSCOPY, RIGHT OVARIAN CYSTECTOMY - PERALTA ([id number]) on 12/26/2021 at 26 Years. Extraction of wisdom tooth ([id number]) in 2016 at 20 Years. Tonsillectomy ([id number]) in 2008 at 13 Years. Social History Social & Psychosocial Habits Alcohol 12/20/2021 Use: Current Type: Beer Frequency: 3-5 times per week Comment: 1 glass of wine at dinner - 12/12/2021 14:37 - Faith Dsouza LPN Substance Abuse 12/12/2021 Use: Never Tobacco 12/12/2021 Tobacco Use: Never (less than 100 in l Home/Environment 12/20/2021 Domestic Concerns None Living situation: Home/Independent Comment: Emergency Contacts- Jason Mcdonald () P: [phone], Annette Liriano (Mother) P: [phone] - 12/12/2021 14:54 - Faith Dsouza LPN . Physical Examination Vital Signs(last 24 hrs) Last Charted Heart Rate Bercipohg83 bpm (DEC 26 11:10) Resp Rate 16 br/min (DEC 26 11:39) ORC628 mmHg (DEC 26 11:39) DBP73 mmHg (DEC 26 11:39) Measurements from flowsheet : Measurements 12/26/2021 7:16 EST Height 152.4 cm Admission Weight 71.6 kg [place] Body Weight 45.50 kg Admission Body Mass Index 30.83 m2 General: Alert and oriented. Airway: Normal temporomandibular joint mobility. Mallampati classification: II (soft palate, fauces, uvula visible). Head: Normocephalic. Dentition Evaluation: Intact. Neck: Supple. Respiratory: Lungs are clear to auscultation. Cardiovascular: Normal rate. Neurologic: Alert. Review / Management Results review: No qualifying data available , Lab results 12/26/2021 11:39 EST Peripheral Pulse Rate 87 bpm Respiratory Rate 16 br/min Systolic Blood Pressure Non-Invasive 128 mmHg Diastolic Blood Pressure Non-Invasive 73 mmHg Mean Arterial Pressure (NBP) 87 mmHg Primary Pain Intensity 0 Primary Pain Nonverbal Response Nods No Pain Scale Type 0-10 Pain scale Cardiac Rhythm Sinus rhythm Respirations Unlabored Respiratory Pattern Regular Oxygen Therapy Room air Oxygen Saturation 100 % Hand Right 12/26/2021 22 gauge Peripheral IV Site Condition: No complications Peripheral IV Equipment: PRN Adaptor Antecubital Left 18 gauge Peripheral IV Line Status/Patency: Continuous infusion Peripheral IV Site Condition: No complications Peripheral IV Equipment: Manual Maury Motor (2) Moves 4 extremities voluntarily or on command Maury Respirations (2) Spontaneous respiration without support, RR > 10 Maury Blood Pressure (2) BP 20% above or below preanesthetic level Maury Pulse (2) Pulse 20% above or below preanesthetic level Maury Oxygen Saturation (2) 94% or more Maury Level of Consciousness (2) Fully awake Maury III Score 12 Activity Status ADL Awake, Resting Degrees Head of Bed Elevated 29 12/26/2021 11:27 EST SN - CTm - Anesthesia Stop Time Anesthesia Stop Anesthesia Final Record 12/26/2021 11:27 EST Lactated Ringers Injection 200 mL mL 12/26/2021 11:23 EST Temperature Temporal Artery 36.3 DegC Peripheral Pulse Rate 93 bpm Respiratory Rate 16 br/min Systolic Blood Pressure Non-Invasive 131 mmHg Diastolic Blood Pressure Non-Invasive 81 mmHg Mean Arterial Pressure (NBP) 93 mmHg Primary Pain Nonverbal Response Appears restful Monitor Alarms On and Limits Checked Nail Bed Color [place] Capillary Refill < 2 seconds Cardiac Rhythm Sinus rhythm Alarms On and Functional Yes Respirations Unlabored Respiratory Pattern Regular All Lobes Breath Sounds Clear Oxygen Therapy Room air Oxygen Saturation 97 % All Extremity Description [place] Temperature All Extremities Warm Abdomen Skin Abnormality Type: Procedure site Incision, Wound Dressing/Activity: Assessed Incision, Wound Dressing Assessment: Clean, Dry, Intact Incision, Wound Dressing: Skin adhesive Wound Edge: Glued Wound Exudate Amount: None Incision, Wound Surrounding Tissue: Normal Wound Status: No complications Continuous IV Infusions [email or web address] Hand Right 12/26/2021 22 gauge Peripheral IV Activity: Assessed Peripheral IV Dressing Condition: Clean, Dry, Intact Peripheral IV Site Condition: No complications Peripheral IV Equipment: PRN Adaptor Antecubital Left 18 gauge Peripheral IV Activity: Assessed Peripheral IV Dressing Condition: Clean, Dry, Intact Peripheral IV Line Status/Patency: Continuous infusion Peripheral IV Site Condition: No complications Peripheral IV Equipment: Manual Patient Identified Identification band Arrival Mode Bed Position HOB elevated Provider Name BRIANDA KELLER APRN-[employer] [employer] Transported From Operating Room Anesthesia Summary Review Yes - verbal Surgical Summary Review Yes - verbal Pertinent PMHx Review Yes - verbal Type of Provider director of individual giving Maury Motor (2) Moves 4 extremities voluntarily or on command Maury Respirations (2) Spontaneous respiration without support, RR > 10 Maury Blood Pressure (2) BP 20% above or below preanesthetic level Maury Pulse (2) Pulse 20% above or below preanesthetic level Maury Oxygen Saturation (2) 94% or more Maury Level of Consciousness (1) Arouses on calling Maury III Score 11 Standard Safety ID band on, Safety level maintained 12/26/2021 11:15 EST Respiratory Rate - Anes 13 br/min br/min Oxygen Saturation 100 % % Operative Note OP REPORT - DR. PERALTA (Modified) 12/26/2021 11:14 EST Intra-Op Urine Catheter 200 mL 12/26/2021 11:13 EST SN - TDC - Device Type TRAY WATKINS CATH 16F W/BAG 10/CA [id number] 12/26/2021 11:13 EST Systolic Blood Pressure Non-Invasive 121 mmHg mmHg Diastolic Blood Pressure Non-Invasive 76 mmHg mmHg 12/26/2021 11:12 EST SN - CO - Medication MARCAINE BUPIVACAINE 0.5% 30ML SN - CO - By (Single) SN - CO - By (Single) 12/26/2021 11:12 EST SN - CTm - Surgery Stop 12/26/2021 11:12 12/26/2021 11:12 EST SN - CTm - Surgery Stop Surgery Stop Intra-Op EBL 10 mL Main OR Intraop Record Main OR Intraop Record 12/26/2021 11:10 EST Heart Rate Monitored 74 bpm bpm Respiratory Rate - Anes 13 br/min br/min Systolic Blood Pressure Non-Invasive 120 mmHg mmHg Diastolic Blood Pressure Non-Invasive 76 mmHg mmHg Oxygen Saturation 100 % % 12/26/2021 11:07 EST Systolic Blood Pressure Non-Invasive 117 mmHg mmHg Diastolic Blood Pressure Non-Invasive 69 mmHg mmHg 12/26/2021 11:05 EST Heart Rate Monitored 67 bpm bpm Respiratory Rate - Anes 22 br/min br/min Oxygen Saturation 100 % % Set Rate Anes 6 br/min br/min 12/26/2021 11:04 EST Systolic Blood Pressure Non-Invasive 116 mmHg mmHg Diastolic Blood Pressure Non-Invasive 66 mmHg mmHg HYDROmorphone 0.5 mg mg 12/26/2021 11:02 EST Lactated Ringers Injection Begin Bag 1,000 mL mL Lactated Ringers Injection 1,000 mL mL 12/26/2021 11:01 EST Systolic Blood Pressure Non-Invasive 109 mmHg mmHg Diastolic Blood Pressure Non-Invasive 76 mmHg mmHg 12/26/2021 11:00 EST Heart Rate Monitored 77 bpm bpm Respiratory Rate - Anes 20 br/min br/min Oxygen Saturation 100 % % Set Rate Anes 6 br/min br/min 12/26/2021 10:58 EST Systolic Blood Pressure Non-Invasive 119 mmHg mmHg Diastolic Blood Pressure Non-Invasive 73 mmHg mmHg HYDROmorphone 0.5 mg mg 12/26/2021 10:55 EST Heart Rate Monitored 76 bpm bpm Respiratory Rate - Anes 13 br/min br/min Systolic Blood Pressure Non-Invasive 116 mmHg mmHg Diastolic Blood Pressure Non-Invasive 85 mmHg mmHg Oxygen Saturation 100 % % Set Rate Anes 6 br/min br/min 12/26/2021 10:53 EST sugammadex 200 mg mg Intra-Op EBL 10 mL 12/26/2021 10:52 EST Systolic Blood Pressure Non-Invasive 117 mmHg mmHg Diastolic Blood Pressure Non-Invasive 78 mmHg mmHg 12/26/2021 10:50 EST Temperature (Route Not Specified) 36.14 DegC DegC Heart Rate Monitored 84 bpm bpm Respiratory Rate - Anes 14 br/min br/min Oxygen Saturation 100 % % Set Rate Anes 14 br/min br/min 12/26/2021 10:49 EST Systolic Blood Pressure Non-Invasive 113 mmHg mmHg Diastolic Blood Pressure Non-Invasive 77 mmHg mmHg 12/26/2021 10:47 EST SN - Cul - Culture Type Tissue in Formalin SN - Cul - Kind Specimen 12/26/2021 10:46 EST SN - Proc - Actual Procedure EXAM UNDER ANESTHESIA, OPERATIVE LAPAROSCOPY, RIGHT OVARIAN CYSTECTOMY, ENDOMETRIAL BIOPSY (Modified) 12/26/2021 10:46 EST Systolic Blood Pressure Non-Invasive 114 mmHg mmHg Diastolic Blood Pressure Non-Invasive 82 mmHg mmHg ketorolac 15 mg mg 12/26/2021 10:45 EST SN - CO - Medication SEALANT 8ML SURGIFLOW /CA 2994 SN - CO - Medication INTERCEED XL ADH GURROLA 4350XL 10/CA SN - CO - Dose 1 EA SN - CO - Route of Administration Other SN - CO - Route of Administration Other SN - CO - By (Single) SN - CO - By (Single) SN - CO - By (Single) SN - CO - By (Single) 12/26/2021 10:45 EST SN - Proc - Anesthesia Type General SN - Proc - EBL 10 mL 12/26/2021 10:45 EST Temperature (Route Not Specified) 36.13 DegC DegC Heart Rate Monitored 83 bpm bpm Respiratory Rate - Anes 14 br/min br/min Oxygen Saturation 99.9 % % Set Rate Anes 14 br/min br/min 12/26/2021 10:44 EST ondansetron 4 mg mg 12/26/2021 10:43 EST Systolic Blood Pressure Non-Invasive 113 mmHg mmHg Diastolic Blood Pressure Non-Invasive 79 mmHg mmHg 12/26/2021 10:40 EST Temperature (Route Not Specified) 36.03 DegC DegC Heart Rate Monitored 86 bpm bpm Respiratory Rate - Anes 14 br/min br/min Systolic Blood Pressure Non-Invasive 119 mmHg mmHg Diastolic Blood Pressure Non-Invasive 81 mmHg mmHg Oxygen Saturation 100 % % Set Rate Anes 14 br/min br/min 12/26/2021 10:37 EST Systolic Blood Pressure Non-Invasive 130 mmHg mmHg Diastolic Blood Pressure Non-Invasive 86 mmHg mmHg 12/26/2021 10:35 EST Temperature (Route Not Specified) 35.89 DegC DegC Heart Rate Monitored 78 bpm bpm Respiratory Rate - Anes 14 br/min br/min Oxygen Saturation 100 % % Set Rate Anes 14 br/min br/min 12/26/2021 10:34 EST Systolic Blood Pressure Non-Invasive 120 mmHg mmHg Diastolic Blood Pressure Non-Invasive 87 mmHg mmHg acetaminophen 1,000 mg mg 12/26/2021 10:31 EST Systolic Blood Pressure Non-Invasive 111 mmHg mmHg Diastolic Blood Pressure Non-Invasive 80 mmHg mmHg 12/26/2021 10:30 EST Temperature (Route Not Specified) 35.76 DegC DegC Heart Rate Monitored 87 bpm bpm Respiratory Rate - Anes 14 br/min br/min Oxygen Saturation 100 % % Set Rate Anes 14 br/min br/min 12/26/2021 10:28 EST Systolic Blood Pressure Non-Invasive 115 mmHg mmHg Diastolic Blood Pressure Non-Invasive 74 mmHg mmHg 12/26/2021 10:27 EST SN - SP - Prep Agents Chloraprep SN - SP - Prep Agents Betadine Solution SN - SP - HR - Method N/A SN - SP - HR - Method N/A 12/26/2021 10:27 EST SN - PP - Body Position Lithotomy Standard Intra-op 12/26/2021 10:26 EST SN - PTCare - Thermals Forced Air Warming Device Upper Body SN - PTCare - Anti-thromboembolism Daniela Sequential Compression Device (SCD) 12/26/2021 10:25 EST SN - Assess - LOC Alert, Awake SN - Assess - Orientation Oriented X 3 SN - Assess - Post-op Skin Integrity Intact/Dry 12/26/2021 10:25 EST SN - CO - Route of Administration Local 12/26/2021 10:25 EST Temperature (Route Not Specified) 35.74 DegC DegC Heart Rate Monitored 86 bpm bpm Respiratory Rate - Anes 14 br/min br/min Systolic Blood Pressure Non-Invasive 110 mmHg mmHg Diastolic Blood Pressure Non-Invasive 73 mmHg mmHg Oxygen Saturation 100 % % Set Rate Anes 14 br/min br/min 12/26/2021 10:24 EST SN - Cul - Culture Type Tissue in Formalin SN - Cul - Kind Specimen 12/26/2021 10:22 EST Systolic Blood Pressure Non-Invasive 120 mmHg mmHg Diastolic Blood Pressure Non-Invasive 87 mmHg mmHg 12/26/2021 10:20 EST SN - GCD - ASA Class 2 SN - GCD - Post-operative Diagnosis OVARIAN MASS, ELEVATED AFP SN - GCD - Case Level Level 3 12/26/2021 10:20 EST Temperature (Route Not Specified) 35.68 DegC DegC Heart Rate Monitored 84 bpm bpm Respiratory Rate - Anes 14 br/min br/min Oxygen Saturation 100 % % Set Rate Anes 14 br/min br/min 12/26/2021 10:19 EST Systolic Blood Pressure Non-Invasive 105 mmHg mmHg Diastolic Blood Pressure Non-Invasive 71 mmHg mmHg acetaminophen Begin Bag 100 mL mg dexamethasone 8 mg mg 12/26/2021 10:17 EST SN - CAt - Case Attendee SN - CAt - Case Attendee SN - CAt - Role Performed It Analyst 12/26/2021 10:17 EST SN - TDC - DC'd at End of Case Yes 12/26/2021 10:16 EST SN - CTm - Surgery Start 12/26/2021 10:16 12/26/2021 10:16 EST Systolic Blood Pressure Non-Invasive 104 mmHg mmHg Diastolic Blood Pressure Non-Invasive 64 mmHg mmHg SN - CTm - Surgery Start Surgery Start 12/26/2021 10:15 EST Temperature (Route Not Specified) 35.72 DegC DegC Heart Rate Monitored 93 bpm bpm Respiratory Rate - Anes 14 br/min br/min Oxygen Saturation 100 % % Main OR Same Day (Pre & Post) Record Main OR Same Day (Pre & Post) Record (Modified) Set Rate Anes 14 br/min br/min 12/26/2021 10:13 EST Systolic Blood Pressure Non-Invasive 94 mmHg mmHg Diastolic Blood Pressure Non-Invasive 54 mmHg mmHg 12/26/2021 10:10 EST Temperature (Route Not Specified) 35.89 DegC DegC Heart Rate Monitored 97 bpm bpm Respiratory Rate - Anes 14 br/min br/min Systolic Blood Pressure Non-Invasive 95 mmHg mmHg Diastolic Blood Pressure Non-Invasive 56 mmHg mmHg Oxygen Saturation 100 % % Set Rate Anes 14 br/min br/min 12/26/2021 10:07 EST Systolic Blood Pressure Non-Invasive 102 mmHg mmHg Diastolic Blood Pressure Non-Invasive 61 mmHg mmHg 12/26/2021 10:05 EST Heart Rate Monitored 102 bpm bpm Respiratory Rate - Anes 12 br/min br/min Systolic Blood Pressure Non-Invasive 101 mmHg mmHg Diastolic Blood Pressure Non-Invasive 59 mmHg mmHg Oxygen Saturation 100 % % Set Rate Anes 12 br/min br/min 12/26/2021 10:03 EST Systolic Blood Pressure Non-Invasive 108 mmHg mmHg Diastolic Blood Pressure Non-Invasive 63 mmHg mmHg 12/26/2021 10:00 EST Heart Rate Monitored 98 bpm bpm Respiratory Rate - Anes 12 br/min br/min Oxygen Saturation 100 % % Set Rate Anes 12 br/min br/min 12/26/2021 9:55 EST Heart Rate Monitored 109 bpm bpm Respiratory Rate - Anes 0 br/min br/min Systolic Blood Pressure Non-Invasive 105 mmHg mmHg Diastolic Blood Pressure Non-Invasive 63 mmHg mmHg Oxygen Saturation 100 % % fentaNYL 100 mcg mcg lidocaine 80 mg mg propofol 180 mg mg rocuronium 70 mg mg 12/26/2021 9:52 EST Systolic Blood Pressure Non-Invasive 127 mmHg mmHg Diastolic Blood Pressure Non-Invasive 71 mmHg mmHg 12/26/2021 9:50 EST SN - CTm - Anesthesia Start Time Anesthesia Start (Modified) midazolam 2 mg mg Lactated Ringers Injection Begin Bag 1,000 mL mL 12/26/2021 9:42 EST Patient Instructions Documentation Patient Instructions Documentation 12/26/2021 9:32 EST SN - CAt - Case Attendee SN - CAt - Case Attendee SN - CAt - Case Attendee SN - CAt - Case Attendee SN - CAt - Case Attendee SN - CAt - Case Attendee SN - CAt - Case Attendee SN - CAt - Case Attendee SN - CAt - Case Attendee SN - CAt - Case Attendee SN - CAt - Case Attendee SN - CAt - Case Attendee SN - CAt - Case Attendee SN - CAt - Case Attendee SN - CAt - Case Attendee SN - CAt - Case Attendee SN - CAt - Case Attendee SN - CAt - Case Attendee SN - CAt - Role Performed Primary Surgeon SN - CAt - Role Performed Anesthesiologist SN - CAt - Role Performed AITCHBONE BREAKER SN - CAt - Role Performed Cloth Packer 1 SN - CAt - Role Performed Resident 1 SN - CAt - Role Performed Resident 2 SN - CAt - Role Performed Scrub 1 SN - CAt - Role Performed Scrub 2 SN - CAt - Role Performed Monument Setter Helper 1 12/26/2021 9:31 EST cefOXitin 2 gram(s) gram(s) 12/26/2021 7:38 EST SN - Preop - CTm Pt Ready for OR/Proced 12/26/2021 7:38 12/26/2021 7:37 EST Lactated Ringers Injection Begin Bag 1,000 mL mL 12/26/2021 7:34 EST Hand Right 12/26/2021 22 gauge Peripheral IV Activity: Insert new site Peripheral IV Site Condition: No complications Peripheral IV Number of Attempts: 1 12/26/2021 7:22 EST ABO/Rh Interp A POS ABSC Interp (Gel) NEG heparin 5,000 unit(s) unit(s) 12/26/2021 7:20 EST Individuals Taught Patient, Spouse Learning Readiness Willing to learn Barriers to Learning None evident Teaching Method Explanation Preferred Written Language Setswana Preferred Spoken Language Setswana Surgical Site Infection Prevention SSI FAQ provided, Hand hygiene Infection Prevention Teaching Evaluation Verbalizes/Nonverbally indicates understanding Ed-Safety Verbalizes/Nonverbally indicates understanding 12/26/2021 7:16 EST Urine POC Negative Height 152.4 cm Admission Weight 71.6 kg [place] Body Weight 45.50 kg Admission Body Mass Index 30.83 m2 Temperature Temporal Artery 36 DegC Peripheral Pulse Rate 72 bpm Respiratory Rate 16 br/min Systolic Blood Pressure Non-Invasive 114 mmHg Diastolic Blood Pressure Non-Invasive 77 mmHg Primary Pain Location Abdomen Primary Pain Intensity 1 Primary Pain Quality Cramping Pain Scale Type 0-10 Pain scale Oxygen Saturation 98 % Abdomen Description Non-distended, Soft Genitourinary Symptoms On Menses Skin Temperature Warm Skin Description [place], Dry IV Present Present Level of Consciousness Alert Violence Risk Confused No Violence Risk Irritable No Violence Risk Boisterous No Violence Risk Verbal Threats No Violence Risk Physical Threats No Violence Risk Attacking Objects No Violence Risk Predictor Score 0 Affect/Behavior Appropriate, Calm, Cooperative Orientation Oriented x 4 Allergies No Drop Pit Worker On No Consent Form Signed Yes Pre-op Preparation Jewelry removed CHG Preoperative Wash/Wipe Night before procedure, Day of procedure, Site specific wipe Preop Nasal Swab Povidone-Iodine CHG Skin Prep Completed for Eligible Surgery History & Physical Update On Chart Yes History & Physical On Chart Yes Obstructive Sleep Apnea Assess Completed Yes MRSA/MSSA Protocol Yes Belongings At Bedside Bra, Cell phone, Coat, Purse, Shirt, Shoes, Socks, Undergarments NPO Status Maintained Standard Safety ID band on, Call device within reach, Bed in low position, Wheels locked, Upper/Half-Length side-rails up, Visitor at bedside Allergy Band on and Verified No Blood Band on and Verified No Patient ID Band on and Verified Yes Implants Verified No Pacemaker/AICD Verified No Anesthesia Consent Signed No Blood Consent Signed Yes Last Fluid Intake 12/25/2021 16:30 Last Food Intake 12/25/2021 16:30 Last Void 12/26/2021 7:20 12/26/2021 7:14 EST Privacy Restrictions Requested None Status No, per patient Sensory Deficits Blind, left eye Sleep Apnea Snore No Sleep Apnea Tired No Sleep Apnea Obstruction No Sleep Apnea Pressure Yes Sleep Apnea BMI No Sleep Apnea Neck No Sleep Apnea Score 1 High Risk for Sleep Apnea No Safety Brochure Information Reviewed Yes Josep Shrestha Video Viewed No Barriers to Learning None evident Teaching Method Explanation Teaching Evaluation Verbalizes/Nonverbally indicates understanding Information Given by Spouse Eat Poorly Due to Decreased Appetite No Total MST Score 0 No Personal Devices, Patient Valuables None Admission Note-Nursing Same Day Patient History (Modified) 12/26/2021 7:11 EST SN - Preop - CTm Pt in SDS Room 12/26/2021 7:11 12/26/2021 0:00 EST History and Physical [facility] H&P (Modified) . Assessment and Plan [place] [employer] (ASA) physical status classification: Class II. Anesthetic Preoperative Plan Premedication: intravenous. Anesthetic technique: General. Induction: intravenously. Maintenance airway: Oral endotracheal tube. Postoperative pain management: Per surgeon. Risks discussed: nausea, vomiting, headache, sore throat, serious complications. Informed consent: signed by patient. Notes: Note is a late entry. Patient was seen prior to entering operating room. History obtained, anesthetic plan described, risks explained, questions answered. . Digitally Signed by NILO PASTOR MD on 12/26/2021 11:50 AM [facility] History and physical note 12-26-2021 Note Date & Type Note Facility 12-26-2021 History and physi holley note GYNECOLOGY ONCOLOGY HISTORY AND PHYSICAL Documented by Dr. Maria Luisa Metcalf PGY [address] Jennifer Peralta DATE: 12/26/21 REFERRING PHYSICIAN: Dr. Ofelia Joshi PRIMARY CARE PHYSICIAN: Dr. Ridge Berman HISTORY OF PRESENT ILLNESS: 26 yo G0 presented to her primary OBGYN for pelvic pain and painful, irregualr periods. This pain was not relieved by treatment with OCPs. On 11/22/21 TVUS showed a right sided ovarian cyst of 3.3 cm. AFP was elevated at 9.0. For this she was referred to Dr. Peralta. The patient denies fever, chills, chest pain, shortness of breath. No coughing or wheezing. No headaches or dizziness. No change in vision or hearing. No skin new skin rashes. No hot flashes. No easy bruising. No diarrhea or constipation. No rectal bleeding. No hematuria or dysuria. Appetite is intact. Energy level is good. Performance status 0. She underwent PAT on 12/15/21. PAST MEDICAL HISTORY: Elevated AFP Hypertension Migraine Ovarian mass PAST SURGICAL HISTORY: Extraction of wisdom tooth: 2016 Tonsillectomy: 2009 HEALTH AND SAFETY TECH HISTORY: G0. Menarche age 8. Patient has irregular menstrual cycles. She has debilitating pain with menstruation including back pain, cramping, and pain with bowel movements. Patient has recent OCP use. History of abnormal pap smear? no. Last pap 10/26/21, normal. Last mammo never. Colonoscopy never. FAMILY HISTORY: Paternal grandmother of ovarian cancer and uterine cancer. Paternal aunt had breast cancer in her 50s Patient denies family history of colon cancer, pancreatic cancer, prostate cancer. SOCIAL HISTORY: Alcohol Details: Use: Current. Type: Beer. Frequency: 3-5 times per week.; Comment(s): 1 glass of wine at dinner Home/Environment Details: Domestic Concerns: None. Living situation: Home/Independent.; Comment(s): Emergency Contacts- Jason Mcdonald () P: [phone], Annette Liriano (Mother) P: [phone] Substance Abuse Details: Use: Never. Tobacco Details: Nicotine Use: Never (less than 100 in lifetime). MEDICATIONS: Home Medications (10) Active amLODIPine 5 mg oral tablet 5 mg = 1 tab(s), Oral, qAM Emgality Prefilled Pen 120 mg/mL subcutaneous solution 120 mg, Subcutaneous, qmonth Flonase 50 mcg/inh nasal spray 1 spray(s), PRN, Nostril, each, qAM Lopressor 25mg--USE metoprolol tartrate 25 mg oral tablet 25 mg = 1 tab(s), Oral, BID magnesium oxide 400 mg oral tablet 400 mg = 1 tab(s), Oral, Daily mupirocin 2% topical ointment 1 sonya, Topical, BID norethindrone 0.35 mg oral tablet 0.35 mg = 1 tab(s), Oral, qDay quinapril 10 mg oral tablet 10 mg = 1 tab(s), Oral, qAM Super B Complex oral tablet 1 tab(s), Oral, Daily Vitamin D3 50 mcg = 1 cap(s), Oral, Daily ALLERGIES: Allergies (1) Active Reaction NKA None Documented REVIEW OF SYSTEMS: See HPI for pertinent positives. A full review of systems was conducted and found to otherwise be negative. PHYSICAL EXAMINATION: GENERAL: The patient is well appearing and in no acute distress EYES: No conjunctivitis, PERRLA ENT/NECK: Normal hearing, oral mucosa normal, normal thyroid LYMPHATIC: No cervical, supraclavicular, or axillary lymphadenopathy BREAST: Not performed CARDIAC: Regular rate and rhythm. No murmurs, rubs, or gallops PULMONARY: Clear to auscultation bilaterally. No wheezes, rales, or crackles ABDOMEN: Soft, Non-Tender, Non-distended. No masses. No hernias. Normal bowel sounds. GENITOURINARY: deferred EXTREMITIES: Warm, no cyanosis, no clubbing, no edema, DIAZ, normal ROM PSYCHIATRIC: Normal affect. Normal Demeanor. Non-pressured speech NEUROLOGIC: Normal sensation, Normal DTRs SKIN: No rashes, warm RESULTS: 10/26/21 Pap Smear Negative for intraepithelial lesion or malignancy 10/26/21 TSH 2.160 11/22/21 HCG <1 Ca 125 18.5 AFP 9.0 CEA 0.3 FSH 2.0 LH 1.8 Prolactin 15. Date: 12/15/21 WBC 12.4 Hgb/Hct 13.7/41.0 Plt 392 Na 138 K 3.5 Cr 0.88 AST/ALT TVUS 11/22/21 Uterus 7.1x4.1x3.2 cm, anteverted, endometrium uniform echogenicity, hyperechoic Left Ovary 1.6x1.1x.9 cm Right ovary 4.1x2.99x3.1, right ovarian cyst 33.1x30.6x29.7mm IMPRESSION: 26 yo G0 with right ovarian cyst. PLAN: Patient is scheduled to undergo Examination under anesthesia, operative laparoscopy, right ovarian cystectomy, possible right salpingo oophorectomy. Dr. Peralta discussed the potential risks of the procedure, including but not limited to: Infection, bleeding, damage to surrounding structures, need for blood transfusion, pneumonia, blood clots, need for reoperation, ICU admission, and . The patient understands these risks and is willing to proceed with the surgery. A surgical consent form was signed in the office. Digitally Signed by MARIA LUISA METCALF DO on 12/24/2021 10:05 AM [facility] History and physical note 12-24-2021 Note Date & Type Note Facility 12-24-2021 History and physi holley note GYNECOLOGY ONCOLOGY HISTORY AND PHYSICAL Documented by Dr. Maria Luisa Metcalf PGY [address] Jennifer Peralta DATE: 12/26/21 REFERRING PHYSICIAN: Dr. Ofelia Joshi PRIMARY CARE PHYSICIAN: Dr. Ridge Berman HISTORY OF PRESENT ILLNESS: 26 yo G0 presented to her primary OBGYN for pelvic pain and painful, irregualr periods. This pain was not relieved by treatment with OCPs. On 11/22/21 TVUS showed a right sided ovarian cyst of 3.3 cm. AFP was elevated at 9.0. For this she was referred to Dr. Peralta. The patient denies fever, chills, chest pain, shortness of breath. No coughing or wheezing. No headaches or dizziness. No change in vision or hearing. No skin new skin rashes. No hot flashes. No easy bruising. No diarrhea or constipation. No rectal bleeding. No hematuria or dysuria. Appetite is intact. Energy level is good. Performance status 0. She underwent PAT on 12/15/21. PAST MEDICAL HISTORY: Elevated AFP Hypertension Migraine Ovarian mass PAST SURGICAL HISTORY: Extraction of wisdom tooth: 2015 Tonsillectomy: 2008 HEALTH AND SAFETY TECH HISTORY: G0. Menarche age 8. Patient has irregular menstrual cycles. She has debilitating pain with menstruation including back pain, cramping, and pain with bowel movements. Patient has recent OCP use. History of abnormal pap smear? no. Last pap 10/26/21, normal. Last mammo never. Colonoscopy never. FAMILY HISTORY: Paternal grandmother of ovarian cancer and uterine cancer. Paternal aunt had breast cancer in her 50s Patient denies family history of colon cancer, pancreatic cancer, prostate cancer. SOCIAL HISTORY: Alcohol Details: Use: Current. Type: Beer. Frequency: 3-5 times per week.; Comment(s): 1 glass of wine at dinner Home/Environment Details: Domestic Concerns: None. Living situation: Home/Independent.; Comment(s): Emergency Contacts- Jason Mcdonald () P: [phone], Annette Liriano (Mother) P: [phone] Substance Abuse Details: Use: Never. Tobacco Details: Nicotine Use: Never (less than 100 in lifetime). MEDICATIONS: Home Medications (10) Active amLODIPine 5 mg oral tablet 5 mg = 1 tab(s), Oral, qAM Emgality Prefilled Pen 120 mg/mL subcutaneous solution 120 mg, Subcutaneous, qmonth Flonase 50 mcg/inh nasal spray 1 spray(s), PRN, Nostril, each, qAM Lopressor 25mg--USE metoprolol tartrate 25 mg oral tablet 25 mg = 1 tab(s), Oral, BID magnesium oxide 400 mg oral tablet 400 mg = 1 tab(s), Oral, Daily mupirocin 2% topical ointment 1 sonya, Topical, BID norethindrone 0.35 mg oral tablet 0.35 mg = 1 tab(s), Oral, qDay quinapril 10 mg oral tablet 10 mg = 1 tab(s), Oral, qAM Super B Complex oral tablet 1 tab(s), Oral, Daily Vitamin D3 50 mcg = 1 cap(s), Oral, Daily ALLERGIES: Allergies (1) Active Reaction NKA None Documented REVIEW OF SYSTEMS: See HPI for pertinent positives. A full review of systems was conducted and found to otherwise be negative. PHYSICAL EXAMINATION: GENERAL: The patient is well appearing and in no acute distress EYES: No conjunctivitis, PERRLA ENT/NECK: Normal hearing, oral mucosa normal, normal thyroid LYMPHATIC: No cervical, supraclavicular, or axillary lymphadenopathy BREAST: Not performed CARDIAC: Regular rate and rhythm. No murmurs, rubs, or gallops PULMONARY: Clear to auscultation bilaterally. No wheezes, rales, or crackles ABDOMEN: Soft, Non-Tender, Non-distended. No masses. No hernias. Normal bowel sounds. GENITOURINARY: deferred EXTREMITIES: Warm, no cyanosis, no clubbing, no edema, DIAZ, normal ROM PSYCHIATRIC: Normal affect. Normal Demeanor. Non-pressured speech NEUROLOGIC: Normal sensation, Normal DTRs SKIN: No rashes, warm RESULTS: 10/26/21 Pap Smear Negative for intraepithelial lesion or malignancy 10/26/21 TSH 2.160 11/22/21 HCG <1 Ca 125 18.5 AFP 9.0 CEA 0.3 FSH 2.0 LH 1.8 Prolactin 15. Date: 12/15/21 WBC 12.4 Hgb/Hct 13.7/41.0 Plt 392 Na 138 K 3.5 Cr 0.88 AST/ALT TVUS 11/22/21 Uterus 7.1x4.1x3.2 cm, anteverted, endometrium uniform echogenicity, hyperechoic Left Ovary 1.6x1.1x.9 cm Right ovary 4.1x2.99x3.1, right ovarian cyst 33.1x30.6x29.7mm IMPRESSION: 26 yo G0 with right ovarian cyst. PLAN: Patient is scheduled to undergo Examination under anesthesia, operative laparoscopy, right ovarian cystectomy, possible right salpingo oophorectomy. Dr. Peralta discussed the potential risks of the procedure, including but not limited to: Infection, bleeding, damage to surrounding structures, need for blood transfusion, pneumonia, blood clots, need for reoperation, ICU admission, and . The patient understands these risks and is willing to proceed with the surgery. A surgical consent form was signed in the office. Digitally Signed by MARIA LUISA METCALF DO on 12/24/2021 10:05 AM [facility] Evaluation + Plan note Note Date & Type Note Facility Evaluation + Plan note Future Appointments Appointment Date:01/11/2022 02:30:00 PM Scheduled Provider:JENNIFER PERALTA MD Location:[facility] Appointment Type:SO OV Post Op [facility] Hospital course Narrative Note Date & Type Note Facility Hospital course Narrative No data available for this section [facility] Hospital Discharge instructions Note Date & Type Note Facility Hospital Discharge instructions No data available for this section [facility] Progress note Note Date & Type Note Facility Progress note No data available for this section [facility] Summary Purpose Family History No Family History Records Found Advance Directives No Advanced Directives Records Found Additional Source Comments Care Team (unrecognized sect ion and content) Care Team Personnel Name: RIDGE MONTANO MD Member Role: Primary Care Physician Address: Address: [address] [place] [address] [address] [place] [address]- [place] Name: JENNIFER PERALTA MD Position: P4 Oncology Provider Member Role: Gynecologic Oncologist Address: Address: [address] [place] [address] Gynecologic On[address] Care Team Related Persons Name: JASON MCDONALD Name: ANNETTE LIRIANO Address: Home [address] [place] [address] [address] [place], [place] [id number] [place] Care Team Personnel Name: RIDGE MONTANO MD Member Role: Primary Care Physician Address: Address: [facility] [address] [place], [place] [address] Name: JENNIFER PERALTA MD Position: P4 Oncology Provider Member Role: Gynecologic Oncologist Address: Address: [address] [place] [address] Gynecologic On[address] Care Team Related Persons Name: JASON MCDONALD Name: ANNETTE LIRIANO Address: Home [address] [facility] [address] [place], [place] [phone] [place] Care Team Personnel Name: RIDGE MONTANO MD Member Role: Primary Care Physician Address: Address: [address] [place] [address]- [place] Name: JENNIFER PERALTA MD Position: P4 Oncology Provider Member Role: Gynecologic Oncologist Address: Address: [address] [facility] [place] [address]- Care Team Related Persons Name: TAMARA JASON Name: ANNETTE LIRIANO Address: Home [address] [facility] [address] [place], [place] [id number] INFORMATION SOURCE (unrecogn ized section and content) FOR RECORDS PERTAINING TO PATIENTS WHO ARE OR HAVE BEEN ENROLLED IN A CHEMICAL DEPENDENCY/SUBSTANCEABUSE PROGRAM, SOME INFORMATION MAY BE OMITTED. This clinical summary was aggregated from multiple sources. Caution should be exercised in using it in the provision of clinical care. This summary normalizes information from multiple sources, and as a consequence, information in this document may materially change the coding, format and clinical context of patient data. In addition, data may be omitted in some cases. CLINICAL DECISIONS SHOULD BE BASED ON THE PRIMARY CLINICAL RECORDS. [employer] provides no warranty or guarantee of the accuracy or completeness of information in this document.
[2023-04-29 12:07] LABS: Testosterone Free 7.4 pg/mL (0.0-4.2)
[2023-04-30 01:07] LABS: 17-Hydroxyprogesterone 46 ng/dL (.)
== END | disposition home or self-care (01) ==
PROVIDERS: PCP Family Medicine; Referring Provider Nurse Practitioner Women's Health; Visit Provider Nurse Practitioner Women's Health
DX: N91.5 Oligomenorrhea, unspecified (principal)
CPT/HCPCS: 36415; 82627; 82670; 83498; 84402; 82626

== ENCOUNTER → 2023-05-15 | Outpatient (CLI) | payer OTHER, SELFPAY ==
--- NOTE | 2023-05-15 12:53 | US_ITS ---
INDICATION: ovarian cyst -- -- PCOS EXAMINATION: Ultrasound US Pelvis Non OB Complete With Transvaginal Imaging TECHNIQUE: Transabdominal and transvaginal pelvic ultrasound was performed. Grayscale, spectral waveform, and color flow Doppler evaluation of the adnexa. COMPARISON: CT scan of the abdomen and pelvis of 04/12/2023 FINDINGS: UTERUS: Anteverted. The uterus measures 8.6 x 5.3 x 4.1 cm. There is no uterine mass. The endometrial stripe measures 13 mm in AP diameter which is within normal limits. RIGHT OVARY: 5.4 x 5 x 4.5 cm. There is a complex right ovarian cysts with internal echoes measuring about 4.8 x 3.6 x 3.6 cm. There is normal arterial inflow and venous outflow present in the right ovary. LEFT OVARY: 3.1 x 2.4 x 1.7 cm. Non-enlarged, normal echogenicity. There is normal arterial inflow and venous outflow present in the left ovary. FREE FLUID: None. US/Pelvic w/ Transvaginal IMPRESSION: Complex right ovarian cyst as described above. Follow-up examination in 2 months is recommended. Electronically Signed: Jax Petersen MD at 8:43 EDT ,
== END | disposition home or self-care (01) ==
LOC: OPUS 12:50
PROVIDERS: PCP Family Medicine; Referring Provider Nurse Practitioner Women's Health; Visit Provider Nurse Practitioner Women's Health
DX: E28.2 Polycystic ovarian syndrome (principal)
CPT/HCPCS: 76830; 76856

== ENCOUNTER → 2023-06-11 | Outpatient (CLI) | payer OTHER, SELFPAY ==
--- NOTE | 2023-06-11 12:56 | US_ITS ---
INDICATION: OVARIAN CYST EXAMINATION: Ultrasound US Pelvis Non OB Limited With Transvaginal Imaging TECHNIQUE: Transabdominal and transvaginal (for optimal evaluation of the adnexa) pelvic ultrasound was performed. Grayscale, spectral waveform, and color flow Doppler evaluation of the adnexa. COMPARISON: May 15, 2023 FINDINGS: UTERUS: Anteverted. The uterus measures 8.1 x 3.0 x 3.8 cm. There is no uterine mass. The endometrial stripe measures 2.1 mm in AP diameter which is within normal limits. RIGHT OVARY: 2.5 x 2.1 x 1.8 cm. Non-enlarged, normal echogenicity. There is normal arterial inflow and venous outflow present in the right ovary. LEFT OVARY: 2.9 x 1.5 x 2.3 cm. Non-enlarged, normal echogenicity. There is normal arterial inflow and venous outflow present in the left ovary. FREE FLUID: None. US/Pelvic w/ Transvaginal IMPRESSION: Within normal limits pelvic ultrasound. Electronically Signed: Keira Lock MD at 9:35 EDT ,
== END | disposition home or self-care (01) ==
PROVIDERS: PCP Family Medicine; Referring Provider Nurse Practitioner Women's Health; Visit Provider Nurse Practitioner Women's Health
DX: N83.209 Unspecified ovarian cyst, unspecified side (principal)
CPT/HCPCS: 76830; 76856

== ENCOUNTER → 2023-08-28 | Outpatient (CLI) | payer OTHER, SELFPAY ==
[2023-09-03 18:04] LABS: HPV Reflexed? NOT INDICATED
== END | disposition home or self-care (01) ==
PROVIDERS: PCP Family Medicine; Referring Provider Nurse Practitioner Women's Health; Visit Provider Nurse Practitioner Women's Health
DX: Z12.4 Encounter for screening for malignant neoplasm of cervix (principal)
CPT/HCPCS: 88175; G0145

== ENCOUNTER → 2024-01-14 | Outpatient (CLI) | payer OTHER, SELFPAY ==
[2024-01-14 16:20] LABS: hCG Titer Quant., Serum 46377 mIU/mL (1-3)
== END | disposition home or self-care (01) ==
LOC: BWCLAB 15:40
PROVIDERS: PCP Family Medicine; Referring Provider Nurse Practitioner Women's Health; Visit Provider Nurse Practitioner Women's Health
DX: N91.2 Amenorrhea, unspecified (principal)
CPT/HCPCS: 36415; 84702

== ENCOUNTER → 2024-01-21 | Outpatient (CLI) | payer OTHER, SELFPAY ==
--- NOTE | 2024-01-21 11:31 | US_ITS ---
STUDY: FIRST TRIMESTER OBSTETRICAL ULTRASOUND REASON FOR EXAM: Female, 28 years old dating LMP: Unknown. TECHNIQUE: Transvaginal TECHNICAL QUALITY: Adequate. PRIOR ULTRASOUND: None. FINDINGS: There is visualization of a single gestational sac in a normal intrauterine position. The mean sac diameter (MSD) measures 3.09 cm, indicating an estimated gestational age (EGA) of 8 weeks, 2 days. The gestational sac shape is within normal limits. There is a visualized yolk sac. The yolk sac measures 2.8 mm. The placenta is non-visualized. There is visualization of a live embryo. The crown-rump length (CRL) measures 1.12 cm, indicating an estimated gestational age (EGA) of 7 weeks, 2 days. There is demonstrated cardiac activity with a heart rate of 146 bpm. The estimated gestation age (EGA) by US is 7 weeks, 6 days. The estimated date of delivery (MILTON) by US is September 02, 2024. The uterus measures 10.8 x 5.9 x 5.6 cm. Posterior fundal moderate-sized intramural fibroid measures 3.52 cm in diameter. The cervix is closed. Small subchorionic hemorrhage at the proximal endometrial stripe and fundus junction measuring 1.54 cm. The right ovary measures 2.3 x 1.9 cm. There is no right ovarian cyst. There is no visualized right adnexal mass or complex lesion. The left ovary measures 3.5 x 2.4 cm. There is no left ovarian cyst. There is no visualized left adnexal mass or complex lesion. There is no fluid in the cul de sac. US/Transvaginal w/Preg US IMPRESSION: 1. The crown-rump length (CRL) measures 1.12 cm, indicating an estimated gestational age (EGA) of 7 weeks, 2 days. There is demonstrated cardiac activity with a heart rate of 146 bpm. 2. Small subchorionic hemorrhage at the proximal endometrial stripe and fundus junction measuring 1.54 cm. 3. Fundal fibroid Electronically Signed: Joss Blue MD at 19:00 EST ,
== END | disposition home or self-care (01) ==
LOC: US 11:30
PROVIDERS: PCP Family Medicine; Referring Provider Nurse Practitioner Women's Health; Visit Provider Nurse Practitioner Women's Health
DX: Z36.87 Encounter for antenatal screening for uncertain dates (principal)
CPT/HCPCS: 76817

== ENCOUNTER → 2024-01-30 | Outpatient (CLI) | payer OTHER, SELFPAY ==
[2024-01-30 16:27] LABS: Protein:Creat Ratio 213 mg/g CRE (0-200)
[2024-02-02 10:07] LABS: Chlamydia By Nucleic Acid AMP Negative (Negative); Gonococcus By Nucleic Acid AMP Negative (Negative)
== END | disposition home or self-care (01) ==
LOC: LABSPEC 14:23
PROVIDERS: PCP Family Medicine; Referring Provider Obstetrics & Gynecology; Visit Provider Obstetrics & Gynecology
DX: O16.9 Unspecified maternal hypertension, unspecified trimester (principal); O99.210 Obesity complicating pregnancy, unspecified trimester; E66.9 Obesity, unspecified; Z3A.00 Weeks of gestation of pregnancy not specified
CPT/HCPCS: 82570; 84156; 87086; 87491; 87591

== ENCOUNTER → 2024-03-04 | Outpatient (CLI) | payer OTHER, SELFPAY ==
[2024-03-04 12:29] LABS: hCG Titer Quant., Serum 46 mIU/mL (1-3)
== END | disposition home or self-care (01) ==
LOC: BWCLAB 10:30
PROVIDERS: PCP Family Medicine; Referring Provider Obstetrics & Gynecology; Visit Provider Obstetrics & Gynecology
DX: Z98.890 Other specified postprocedural states (principal)
CPT/HCPCS: 36415; 84702

== ENCOUNTER → 2024-03-07 | Outpatient (CLI) | payer OTHER, SELFPAY ==
--- NOTE | 2024-03-07 15:49 | US_ITS ---
INDICATION: rule out retained products -- appt anytime after 3:30 please EXAMINATION: Ultrasound US Pelvis Non OB Complete With Transvaginal Imaging TECHNIQUE: Transabdominal and transvaginal pelvic ultrasound was performed. Grayscale, spectral waveform, and color flow Doppler evaluation of the adnexa. COMPARISON: FINDINGS: UTERUS: Anteverted. The uterus measures 8.3 x 5.1 x 4.0 cm. There is no uterine mass. The endometrial stripe measures 19 mm in AP diameter with heterogeneity. RIGHT OVARY: 3.8 x 2.9 x 1.9 cm. Non-enlarged, normal echogenicity. There is normal arterial inflow and venous outflow present in the right ovary. LEFT OVARY: Limited visualization. FREE FLUID: None. The urinary bladder has a volume of 558 cc. No wall thickening. US/Pelvic w/ Transvaginal IMPRESSION: Heterogeneous thickened endometrium. Retained products cannot be excluded. Electronically Signed: Aj Desai DO at 16:31 EST Reading Location ID and State: [facility] / [place] Tel [phone], Service support ,
== END | disposition home or self-care (01) ==
LOC: US 15:49
PROVIDERS: PCP Family Medicine; Referring Provider Obstetrics & Gynecology; Visit Provider Obstetrics & Gynecology
DX: O03.4 Incomplete spontaneous abortion without complication (principal)
CPT/HCPCS: 76830; 76856

== ENCOUNTER → 2024-03-13 | Outpatient (CLI) | payer OTHER, SELFPAY ==
--- NOTE | 2024-03-13 14:26 | US_ITS ---
PROCEDURE: PELVIC W/ TRANSVAGINAL REASON FOR EXAM: Retained products of conception. Recent . TECHNIQUE: Transabdominal and transvaginal pelvic ultrasound COMPARISON: Comparison is made with prior study dated March 07, 2024. FINDINGS: Measurements: Uterus: 8.8 cm x 5.2 cm x 3.9 cm. Endometrial Thickness: 16 mm. It is heterogeneous. Right Ovary: 2.3 cm x 1.6 cm x 2.2 cm. Left Ovary: 3.4 cm x 2.4 cm x 1.8 cm. TRANSABDOMINAL: Uterus: Normal size, myometrial echotexture, and contour. Endometrium: Endometrial is heterogeneous and measures 16 mm. Right ovary: Normal size and echotexture. Left ovary: Normal size and echotexture. No large pelvic mass identified. Transvaginal sonography was performed to better visualize the endometrium and to look for the nonvisualized ovary or ovaries. TRANSVAGINAL: Uterus: Anteverted. Normal contour and myometrial echotexture. Endometrium: Thickened measuring 60 mm and heterogeneous. Right ovary: Normal size and echotexture. Left ovary: Normal size and echotexture. Other adnexal findings: None. Cul-de-sac: No free intraperitoneal fluid identified. No tenderness. US/Pelvic w/ Transvaginal IMPRESSION: Heterogeneous thickening of the endometrium. Residual products of conception s hould be ruled out. Reading Location: [place] [address]
== END | disposition home or self-care (01) ==
PROVIDERS: PCP Family Medicine; Referring Provider Obstetrics & Gynecology; Visit Provider Obstetrics & Gynecology
DX: O03.4 Incomplete spontaneous abortion without complication (principal)
CPT/HCPCS: 76830; 76856

== ENCOUNTER 2024-03-18 11:55 | Day surgery (SDC) | payer OTHER, SELFPAY ==
[2024-03-18] VITALS (7 sets, daily range): BP systolic 118–144; BP diastolic 65–94; PULSE 67–82; RESP 12–16; TEMP 36.3–36.7; O2SAT 98–100; BMI 28.1
--- NOTE | 2024-03-18 | POC_PTH ---
PATIENT: CHAY LIRIANO LOC: [facility] [place] [facility] [place] U#:[id number] AGE/SX: 28/F ROOM: RE03/18/[address]: Dr. Bailey Stanton MD : 1995 BED: DIS: 03/18/2024 SPEC #: [id number] RECD: 03/18/24 13:53 STATUS: CRESCENCIO HANLEY #: [id number] HASMUKH: 03/18/24 00:[address]: Bailey Stanton DEPT: SURGICAL PATHOLOGY RECD BY: Kristen Obrien ENTERED: 03/19/24 08:43 SP TYPE: PROD CONC OTHR DR: Dr. Farhan Farnsworth MD Tissues: Product of conception, NOS Procedures: Surgery Specimen Level IV HEADER OPERATION: Suction, D&C PRE-OP DIAGNOSIS: Incomplete TISSUE SUBMITTED: Retained products of conception MICROSCOPIC DIAGNOSIS Retained products of conception, dilation and curettage: Fragments of inflamed benign endometrial tissue with decidual changes, immature and infarcted villi and fibrinous material (retained products of conception), clinically incomplete . ASH: 03/20/2024 MICROSCOPIC DESCRIPTION Slides are reviewed. GROSS DESCRIPTION Received in fixative is one container labeled with the patient's name and designated Retained products of conception. The specimen consists of multiple irregular fragments of brown soft tissue that in aggregate measure 7.5 x 6 x 0.3 cm. The specimen is totally submitted in three cassettes. 03/19/2024 TC:5 CPT:40059
--- NOTE | 2024-03-18 11:37 | PCM.HP.STD ---
HPI - General HPI Narrative CHAY MCDONALD, is a 28 F who presents for retained endometrium after her elective medical at 9 weeks. Ultrasound showed initially a 19 mm endometrium that was heterogenous on 03/07/24. on 03/13/24 and after a dose of cytotec the endometrium was still at 16 mm and heterogenous and she did not experience any further bleeding. She states that she is starting to feel some cramping now. She wants to wait the weekend and if no passing of tissue or blood wants to have a D&C next week. [facility] Medical History Wears glasses Non-smoker Abnormal Pap smear of cervix Seasonal allergies HTN (hypertension) Migraines Home Medications ?Medication ?Instructions ?Recorded ?Last Taken ?Type NK 03/14/24 Unknown History Allergy/AdvReac Type Severity Reaction Status Date / Time No Known Allergies Allergy Verified 03/18/24 12:27 Family History Aunt Breast cancer Paternal Grandmother Cancer Paternal- Uterine Surgical History S/P ovarian cystectomy History of laparoscopy History of wisdom tooth extraction Hx of tonsillectomy Social History adopted: No household members: family current occupational status: employed 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 pets and animals: Yes pets and animals: dog(s) history of recent travel: No sexually active: Yes Smoking Status: Never smoker alcohol intake: former year quit: 2022 substance use type: does not use well-balanced diet: daily or most days caffeine: No eating out: 1-3 times/week during the past year weight has: decreased > 10 lbs what type of physical activity do you participate in: none leatha/restorationism: None seatbelt use: always do you feel safe at home: Yes additional social history: PAUL GLYNN Constitutional Constitutional: Reports systems reviewed and no addt'l complaints, except as documented; Denies as per HPI, change in weight, fatigue, fever(s), malaise, weakness or other Eyes Eyes: Reports systems reviewed and no addt'l complaints, except as documented; Denies as per HPI, change in vision or other ENT HEENT: Reports systems reviewed and no addt'l complaints, except as documented Respiratory/Chest Respiratory/Chest: Reports systems reviewed and no addt'l complaints, except as documented Gastrointestinal Gastrointestinal: Reports systems reviewed and no addt'l complaints, except as documented and as per HPI Genitourinary Genitourinary: Reports as per HPI Musculoskeletal Musculoskeletal: Reports systems reviewed and no addt'l complaints, except as documented Neurologic Neurologic: Reports systems reviewed and no addt'l complaints, except as documented Psychiatric Psychiatric: Reports systems reviewed and no addt'l complaints, except as documented Endocrine Endocrinology: Reports systems reviewed and no addt'l complaints, except as documented Hematologic/Lymphatic Hematologic/Lymphatic: Reports systems reviewed and no addt'l complaints, except as documented Physical Exam Const alert, oriented x3 and no apparent distress HEENT normocephalic Head and Scalp: atraumatic Eyes EOMs intact bilaterally and conjunctivae normal Neck full ROM, no lymphadenopathy, supple and thyroid normal General: trachea midline Lymph Lymphatic: no lymphadenopathy noted Resp normal respiratory effort, no retractions, no use of accessory muscles and clear to auscultation bilaterally Cardio regular rhythm GI normal to inspection, nondistended, normoactive bowel sounds, soft to palpation, non-distended and no masses Inspection: Negative for abdominal distention Back/Spine no CVA tenderness Extremity normal to inspection Skin no rashes or lesions noted Neuro moves all extremities and deep tendon reflexes 2+ bilaterally Psych mental status grossly normal Results Lab / Micro Data 03/18/24 12:32 Assessment & Plan Assessment/Plan (1) Incomplete : PLAN: Plan After discussing the patient's diagnosis and treatment plan options, patient wishes to proceed with surgical management. I have discussed with the patient the risks, benefits, and alternatives of the procedure which include but are not limited to risks of anesthesia, bleeding, infection, possible damage to bowel, bladder, or surrounding vasculature which could lead to additional surgery to evaluate any complications. Patient agrees to procedure and wishes to proceed. ACOG/uptodate references given for additional information regarding procedure. UPDATE- I have seen the patient and performed any clinically relevant updates to the history and physical exam. Bailey Stanton MD
[2024-03-18] MEDS: Doxycycline 100 MG CAPSULE PO (12:37)
[2024-03-18 12:46] LABS: Hematocrit 41.3 % (37-47); Hemoglobin 13.4 g/dL (12.0-15.0); Mean Corp Hgb Conc 32.4 g/dL (32-36); Mean Corpuscular Hgb 30.2 pg (27.0-32.0); Mean Corpuscular Volume 93.2 fL (81-99); Mean Platelet Vol. 9.3 fl (6.2-12.0); Platelet Count 334 K/mm3 (150-450); RBC Distribution Width CV 12.5 % (11.6-14.6); RBC Distribution Width SD 43.2 fl (35.1-43.9); Red Blood Count 4.43 M/mm3 (4.2-5.4); White Blood Count 9.1 K/mm3 (4.4-11.0)
[2024-03-18 12:55] LABS: Internal QC Validated? YES +Cl - CLEAR BKGD; Pregnancy, Urine Negative Negative; Record Kit Lot#,Urine Preg 856586
--- NOTE | 2024-03-18 12:59 | PCM.PRE.AN2 ---
ASA Classification* ASA Classification ASA Classification: 2 Assessment & Plan Anesthesia* Anesthesia Assessment Anesthesia Assessment: Discussed sedation and/or anesthesia options, risks, benefits, and alternatives with patient/parents/legal guardian/POA. Questions invited. The patient/parents/legal guardian/POA seems to understand and agrees to proceed with anesthesia plan. Reviewed the physical assessment, medical history, allergy history and patient home medications list prior to surgery/procedure/anesthetic and documented any changes. Performed airway and anesthesia risk assessments. Anesthesia Type Anesthesia Type: MAC History Source History Obtained from:: Patient and Chart Anesthesia Focused Assessment* Temperature: 98.1 F Pulse Rate: 67 Blood Pressure: 144/94 Respiratory Rate: 16 Pulse Ox: 100 Oxygen Delivery Method: Room Air Airway Assessment Mouth opens: >3 cm Mallampati Score: I Teeth Condition: Intact Neck Range of motion (ROM): Full ROM Focused Labs Anesthesia Preop lab: CBC WBC 9.1 K/mm3 (4.4-11.0) 03/18/24 12:32 03/18/24 RBC 4.43 M/mm3 (4.2-5.4) 03/18/24 12:32 03/18/24 Hgb 13.4 g/dL (12.0-15.0) 03/18/24 12:32 03/18/24 Hct 41.3 % (37-47) 03/18/24 12:32 03/18/24 Plt Count 334 K/mm3 (150-450) 03/18/24 12:32 03/18/24 CHEMISTRY Potassium 3.5 mmol/L (3.5-5.1) 04/12/23 13:15 04/12/23 Sodium 137 mmol/L (136-145) 04/12/23 13:15 04/12/23 Magnesium 2.6 mg/dL (1.6-2.6) 04/18/21 15:54 04/18/21 BUN 10 mg/dL (7-18) 04/12/23 13:15 04/12/23 Creatinine 0.83 mg/dL (0.55-1.02) 04/12/23 13:15 04/12/23 Glucose 77 mg/dL (74-106) 04/12/23 13:15 04/12/23 TSH 2.13 uIU/mL (0.358-3.74) 11/02/22 16:04 11/02/22 COAG HCG, Quant 46 mIU/mL (1-3) H 03/04/24 10:30 03/04/24 Urine Test Negative Negative 03/18/24 23:59 03/18/24 Pre-Assessment Diagnosis/Proposed Procedure Planned Operative Procedure(s): HYSTEROSCOPY D&C POSS SUCTION D&C Anesthesia History Anesthesia History - data conversion operator: Anesthesia History - data conversion operator Hx Hospitalization No 03/14/24 12:39 Any Problems With Anesthesia No 03/14/24 12:39 Cholinesterase deficiency No 03/14/24 12:39 You/Your Family Experience No 03/14/24 12:39 fever (hyperthermia) with Relationship Recent Exposure to Contagious No 03/18/24 12:28 Disease Does patient have nerve No 03/14/24 12:39 stimulator Patient instructed to have device shut off --Does patient have Pacemaker No 03/18/24 12:28 or ICD? When Was Last Pacemaker Check QUESTION #4 FULL TEXT: You/Your Family Experience fever (hyperthermia) with Anesthesia Last Oral Intake Last Oral intake: Last Oral Intake NPO since 11:00 03/18/24 12:28 Meds taken in AM with sips of water? Meds patient instructed to take am of surgery Any additional information?: Yes NPO since: 10:30 (Patient had tea at 10:30 AM) Meds taken in AM with sips of water?: No PONV PONV - data conversion operator: PONV - data conversion operator Female Yes 03/14/24 12:39 HX of Motion Sickness No 03/14/24 12:39 HX of N/V After Surgery No 03/14/24 12:39 Non-Smoker Yes 03/14/24 12:39 Duration of Surgery greater No 03/14/24 12:39 than 60 minutes Number of Risk Factors 2 03/14/24 12:39 PONV Score Moderate Risk 03/14/24 12:39 Height & Weight Height & Weight: Anesthesia: Height & Weight Height 5 ft 03/18/24 12:28 Weight: 65.4 kg 03/18/24 12:28 Body Mass Index (BMI) 28.1 03/18/24 12:28 Respiratory Assessment Respiratory Assessment - data conversion operator: Respiratory Tract Infection Hx - data conversion operator Hx Respiratory Tract Infection No 03/14/24 12:39 STOP Sleep Apnea STOP Sleep Apnea - data conversion operator: STOP Sleep Apnea - data conversion operator Hx Hypertension Yes: NO MED FOR 6 MONTHS 03/14/24 12:39 Hx Sleep Apnea No 03/14/24 12:39 CPAP BIPAP Do you snore loudly (louder No 03/14/24 12:39 than talking or can be heard Do you often feel tired/ No 03/14/24 12:39 fatigued/ sleepy during daytime? Has anyone observed you stop No 03/14/24 12:39 breathing during sleep? STOP Results Negative 03/14/24 12:39 QUESTION #5 FULL TEXT : Do you snore loudly (louder than talking or can be heard through closed doors)? 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 Specify any problems Hx of Preganancy in last 3 Yes 03/14/24 12:39 Months Nurse Filling Out Transfusion DSCHRIBER 03/14/24 12:39 & Questions: Date: 03/14/24 03/14/24 12:39 Time: 12:40 03/14/24 12:39 Patient unable to answer at this time (ie. confused, unrespo /Reproduction History /Reproductive History - data conversion operator: /Reproductive Hx- data conversion operator Hx Now No 03/14/24 12:39 Gestational Age (in weeks): EDC: Hx Hx Para Hx Section SAB No 03/14/24 12:39 Active Medications Active Medications: Current Medications Generic Name Dose Route Start Last Admin Trade Name Freq PRN Reason Stop Dose Admin Doxycycline Monohydrate 100 mg 03/18/24 15:30 03/18/24 12:37 Doxycycline 100 Mg Capsule PO 100 mg PREOP MISHA Administration PFSH Medical History Wears glasses Non-smoker Abnormal Pap smear of cervix Seasonal allergies HTN (hypertension) Migraines Home Medications ?Medication ?Instructions ?Recorded ?Last Taken ?Type NK 03/14/24 Unknown History Allergy/AdvReac Type Severity Reaction Status Date / Time No Known Allergies Allergy Verified 03/18/24 12:27 Family History Aunt Breast cancer Paternal Grandmother Cancer Paternal- Uterine Surgical History S/P ovarian cystectomy History of laparoscopy History of wisdom tooth extraction Hx of tonsillectomy Social History adopted: No household members: family current occupational status: employed current occupation: [employer] pets and animals: Yes pets and animals: dog(s) history of recent travel: No sexually active: Yes Smoking Status: Never smoker alcohol intake: former year quit: 2022 substance use type: does not use well-balanced diet: daily or most days caffeine: No eating out: 1-3 times/week during the past year weight has: decreased > 10 lbs what type of physical activity do you participate in: none leatha/adventist: None seatbelt use: always do you feel safe at home: Yes additional social history: F[employer]- [employer] Review of Systems (Anesthesia) ROS Narrative System reviewed and no additional complaints, except as documented.
[2024-03-18] MEDS: Lidocaine 1% (30 ml sdv) 30 ML Vial (13:28)
--- NOTE | 2024-03-18 13:38 | OP.PCM_ITS ---
Problems Associated Problem List Diagnoses (1) Incomplete : Procedures Urinary/Genital [id number]: [id number] Trmt of incomplete Ab, any TM Operative Report (Standard) Operative Information Date of Procedure: 03/18/24 Pre-Operative Diagnosis: see problem list comments Post-Operative Diagnosis: same Surgery/Procedure Performed: suction dilation and curettage head waiter/waitress: No Type of Anesthesia: IV Sedation and Local RN Documented Start/Stop Times: Operation Date: 03/18/24 15:30 Case Time Into Pre-Op 03/18/24 12:07 Anesthesia Start 03/18/24 13:10 Into Room 03/18/24 13:10 Procedure Start 03/18/24 13:27 Procedure End 03/18/24 13:35 Procedure Start Time: 13:27 Procedure Stop Time: 13:35 Select all DRAINS/GRAFTS/IMPLANTS that apply: None Estimated Blood Loss: 100 Specimen collected: Yes Description of specimen(s) removed: retained POC Description of surgery: Patient was taken to the operating room and placed under MAC local anesthesia. She was prepped and draped in the normal sterile fashion the dorsal lithotomy p osition. Bladder was drained of clear urine and anterior lip of the cervix was grasped and the uterus sounded to 6 cm. Cervix was progressively dilated to allow passage of a 7mm suction curette. Progressive passes were made removing the retained products of conception without complication. Sharp curettage confirmed complete removal of the retained products. All instruments were removed from the vagina and excellent hemostasis was noted and the patient was taken to recovery in stable condition. Surgical Findings: 7 week size uterus Complications Complications: No
--- NOTE | 2024-03-18 13:43 | PCM.POST.ANE ---
Anesthesia: Postop Eval I Current Vital Signs Temperature: 97.4 F Pulse Rate: 75 Blood Pressure: 118/65 Respiratory Rate: 12 Pulse Ox: 98 Oxygen Delivery Method: Room Air Assessment Airway patent: Yes Spontaneous unlabored respirations: Yes Mental status: Awake nausea: No Vomiting: No Anesthesia Complication: No Fluid Hydration Crystalloid volume administer (ml): 500 Total IV fluid infused: 500 Progress Note Anesthesia document: Postop Eval 1 completed: Yes
--- NOTE | 2024-03-18 13:44 | PCM.DC ---
Discharge Instructions Diet Discharge Diet: No restrictions DC O2, CPAP, BIPAP needs Home O2 Discharge instructions: No Dressing / Incision Discharge Activity: Return to Normal Activity, May Shower and May Take a Tub Bath (after 1 week) May resume sexual activity in: 1-2 weeks Weight Bearing Status: Weight bearing as tolerated Lifting Restrictions: none Dressing / Incision Call your doctor if you observe: Fever of 101 or Higher, Using more than 1 pad per hour, Shortness of breath and Uncontrolled pain Follow Up Care Please Follow Up With: Bailey Stanton MD When: Call [phone] to schedule appointment. Test Results: Test results from this visit will be discussed in further detail at your follow-up appointment, if applicable. Discharge Plan Admission Attending Provider: Bailey Stanton Primary Care Provider: Farhan Farnsworth Instructions Print Language: Persian Discharge Orders/Prescriptions Prescriptions: No Action NK Referrals / Follow Up: Farhan Farnsworth MD [Primary Care Provider] - Disposition Disposition (needs filled in before D/C Order can be placed): Home, Self Care
--- NOTE | 2024-03-18 15:03 | POSTOPAN2_ITS ---
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 Vomiting No 03/18/24 13:44 BUSINESS [email or web address] Anesthesia Postop Eval I: Fluid Summary Crystalloid volume administer 500 03/18/24 13:44 BUSINESS [email or web address] (ml) Colloids volume administered ( ml) Blood Product volume administered (ml) Total IV fluid infused 500 03/18/24 13:44 BUSINESS [email or web address] Anesthesia Postop Eval I: Summary Notes Anesthesia Complication No 03/18/24 13:44 BUSINESS [email or web address] Anesthesia Complication Comment: Post-operative progress note Anesthesia: Postop Eval II Evaluation Mental status: Awake Pain Level: 0 nausea: No Vomiting: No
--- NOTE | 2024-03-18 15:03 | PCM.POSTANE2 ---
Anesthesia Postop Eval I Sum Postop Eval Completion status Anesthesia document: Postop Eval 1 completed: Yes Anesthesia Postop Eval I Summary Anesthesia Postop Eval I Summary: Anesthesia Postop Eval I: Assessment Summary Airway patent Yes 03/18/24 13:44 [email or web address] [email or web address] Spontaneous unlabored Yes 03/18/24 13:44 [employer] [email or web address] respirations Mental status Awake 03/18/24 13:44 [employer] [email or web address] nausea No 03/18/24 13:44 MARKETING [employer] OP.[email or web address] Vomiting No 03/18/24 13:44 MARK[employer]ING [employer] OP.[email or web address] Anesthesia Postop Eval I: Fluid Summary Crystalloid volume administer 500 03/18/24 13:44 MARKETING [employer] [email or web address] (ml) Colloids volume administered ( ml) Blood Product volume administered (ml) Total IV fluid infused 500 03/18/24 13:44 [employer]ETING [employer] OP.[email or web address] Anesthesia Postop Eval I: Summary Notes Anesthesia Complication No 03/18/24 13:44 MARKETING [employer] OP.HBARR Anesthesia Complication Comment: Post-operative progress note Anesthesia: Postop Eval II Evaluation Mental status: Awake Pain Level: 0 nausea: No Vomiting: No
== END 2024-03-18 14:32 | disposition home or self-care (01) ==
LOC: SDC 12:00 → AC 12:06
PROVIDERS: Anesthesiology; PCP Family Medicine; Referring Provider Obstetrics & Gynecology; Visit Provider Obstetrics & Gynecology
PROC: 0UDB8ZZ Extraction of Endometrium, Via Natural or Artificial Opening Endoscopic (ICD-10-PCS; CPT 58558; principal; 2024-03-18 15:20)
DX: O03.4 Incomplete spontaneous abortion without complication (principal); I10 Essential (primary) hypertension
CPT/HCPCS: 59812; 01965; 81025; 85027; 86850; 86900; 86901; 88305; A4216; J2405

== ENCOUNTER → 2024-04-30 | Outpatient (CLI) | payer OTHER, SELFPAY | END | disposition home or self-care (01) | LOC: LABSPEC 16:18 | PROVIDERS: PCP Family Medicine; Referring Provider Nurse Practitioner Family; Visit Provider Nurse Practitioner Family | DX: N89.8 Other specified noninflammatory disorders of vagina (principal) | CPT/HCPCS: 87070; 87205 ==

== ENCOUNTER → 2024-06-10 | Outpatient (CLI) | payer OTHER, SELFPAY ==
[2024-06-13 07:08] LABS: Chlamydia By Nucleic Acid AMP Negative (Negative); Gonococcus By Nucleic Acid AMP Negative (Negative)
== END | disposition home or self-care (01) ==
LOC: LABSPEC 16:07
PROVIDERS: PCP Family Medicine; Referring Provider Nurse Practitioner Family; Visit Provider Nurse Practitioner Family
DX: Z11.3 Encounter for screening for infections with a predominantly sexual mode of transmission (principal); N89.8 Other specified noninflammatory disorders of vagina
CPT/HCPCS: 87070; 87205; 87491; 87591

== ENCOUNTER → 2024-08-22 | Outpatient (CLI) | payer BC, SELFPAY | END | disposition home or self-care (01) | LOC: BWCLAB 14:52 | PROVIDERS: PCP Family Medicine; Referring Provider Advanced Practice Midwife; Visit Provider Advanced Practice Midwife | DX: R10.2 Pelvic and perineal pain (principal) | CPT/HCPCS: 87086; 87088 ==